=== PATIENT | male | born 1935 | race Caucasian/White ===

== ENCOUNTER 2018-06-17 08:41 | Inpatient (IN) | payer MEDICARE, BC ==
[2018-06-17 09:41] LABS: ABSOLUTE LYMPHOCYTES (AUTO) 0.6 10^3/uL (0.5-4.7); ABSOLUTE MONOCYTES (AUTO) 1.3 10^3/uL (0.1-1.4); ABSOLUTE NEUT (AUTO) 7.9 10^3/uL (1.7-8.2); BASOPHILS % (AUTO) 0.4 % (0-2); EOSINOPHILS % (AUTO) 0.4 % (0-6); HEMATOCRIT 31.2 % (37.9-51.0); HEMOGLOBIN 10.8 g/dL (13.5-17.0); LYMPHOCYTES % (AUTO) 6.1 % (13-45); MEAN CORPUSCULAR HEMOGLOBIN 27.5 pg (27.0-33.4); MEAN CORPUSCULAR HGB CONC 34.5 g/dL (32.0-36.0); MEAN CORPUSCULAR VOLUME 80 fl (80-97); MONOCYTES % (AUTO) 13.4 % (3-13); PLATELET COUNT 109 10^3/uL (150-450); RED BLOOD COUNT 3.91 10^6/uL (4.35-5.55); RED CELL DISTRIBUTION WIDTH 13.9 % (11.5-14.0); SEGMENTED NEUTROPHILS % (AUTO) 79.7 % (42-78); TOTAL CELLS COUNTED % (AUTO) 100 %; WHITE BLOOD COUNT 9.9 10^3/uL (4.0-10.5)
[2018-06-17 10:00] LABS: ALANINE AMINOTRANSFERASE 23 U/L (21-72); ALBUMIN 3.6 g/dL (3.5-5.0); ALKALINE PHOSPHATASE 70 U/L (38-126); ANION GAP 8 (5-19); ASPARTATE AMINO TRANSFERASE 14 U/L (17-59); BILIRUBIN,DIRECT 0.1 mg/dL (0.0-0.4); BILIRUBIN,TOTAL 1.5 mg/dL (0.2-1.3); BLOOD UREA NITROGEN 11 mg/dL (7-20); CALCIUM 8.7 mg/dL (8.4-10.2); CARBON DIOXIDE 32 mmol/L (22-30); CHLORIDE 84 mmol/L (98-107); CREATINE KINASE 37 U/L (55-170); GLUCOSE 156 mg/dL (75-110); POTASSIUM 5.1 mmol/L (3.6-5.0); SODIUM 123.9 mmol/L (137-145); TOTAL PROTEIN 6.3 g/dL (6.3-8.2)
--- NOTE | 2018-06-17 10:00 | RADIOLOGY REPORT (SQ) ---
EXAM DESCRIPTION: CHEST 2 VIEWS COMPLETED DATE/TIME: 06/17/2018 9:44 am REASON FOR STUDY: sob COMPARISON: 03/17/2015. EXAM PARAMETERS: NUMBER OF VIEWS: two views TECHNIQUE: Digital Frontal and Lateral radiographic views of the chest acquired. RADIATION DOSE: NA LIMITATIONS: none FINDINGS: LUNGS AND PLEURA: No opacities, masses or pneumothorax. No pleural effusion. MEDIASTINUM AND HILAR STRUCTURES: No masses or contour abnormalities. HEART AND VASCULAR STRUCTURES: Stable mild cardiomegaly. No evidence for failure. BONES: No acute findings. Old fracture of the left clavicle. HARDWARE: Pacemaker. OTHER: No other significant finding. IMPRESSION: STABLE APPEARANCE OF THE CHEST. MILD CARDIOMEGALY. TECHNICAL DOCUMENTATION: JOB ID: [id number] [employer]- All Rights Reserved Reading location - IP/workstation name: [email or web address]
[2018-06-17 10:11] LABS: CREATINE KINASE MB 1.65 ng/mL (<4.55); NT PRO BNP 4300 pg/mL (<450)
[2018-06-17 10:13] LABS: TROPONIN I < 0.012 ng/mL
[2018-06-17 10:14] LABS: VENOUS BLOOD BASE EXCESS 5.4 mmol/L; VENOUS BLOOD HCO3 31.7 mmol/L (20-32); VENOUS BLOOD PCO2 55.3 mmHg (35-63); VENOUS BLOOD PH 7.38 (7.30-7.42)
--- NOTE | 2018-06-17 10:20 | ER Document Report ---
ED General - General Chief Complaint: Shortness Of Breath Stated Complaint: SHORTNESS OF BREATH Time Seen by Provider: 06/17/18 09:15 TRAVEL OUTSIDE OF THE [place] IN LAST 30 DAYS: No - HPI Patient complains to provider of: Shortness of breath Notes: The patient patient coming in for evaluation of shortness of breath. Patient states ongoing for greater than a week. Patient states having difficulty sleeping at night unable to lie flat in bed patient does endorse approximately a 10-15 pound weight gain. Patient does endorse a history of CHF COPD diabetes A. fib. Patient does have an AICD placed. Patient states compliance with his medication including his Lasix at bedside states that they have been doubling up every other day to try to get some fluid off however this is been unsuccessful saw her mailing clerk today Dr. Montalvo who referred the patient to the ER for further evaluation. Patient otherwise denies any chest pain denies any fevers chills productive cough. Patient is currently on 2 L nasal cannula oxygen states he does not wear oxygen at home upon removing the oxygen patient's SPO2 does go down to approximately 91-92. - Related Data Allergies/Adverse Reactions: No Known Allergies Allergy (Verified 06/17/18 08:42) Past Medical History - Social History Smoking Status: Former Smoker Chew tobacco use (# tins/day): No Frequency of alcohol use: None Drug Abuse: None Family History: Reviewed & Not Pertinent Patient has suicidal ideation: No Patient has homicidal ideation: No - Past Medical History Cardiac Medical History: Reports: Hx Hypercholesterolemia, Hx Hypertension Endocrine Medical History: Reports: Hx Diabetes Mellitus Type 2 Renal/ Medical History: Reports: Hx Benign Prostatic Hyperplasia, Hx Renal Insufficiency. Denies: Hx Peritoneal Dialysis GI Medical History: Reports: Hx Diverticulitis Past Surgical History: Reports: Hx Cholecystectomy, Hx Herniorrhaphy, Hx Orthopedic Surgery - Immunizations Immunizations up to date: Yes Hx Diphtheria, Pertussis, Tetanus Vaccination: Yes Hx Pneumococcal Vaccination: 06/10/12 Review of Systems - Review of Systems Constitutional: No symptoms reported EENT: No symptoms reported Cardiovascular: No symptoms reported Respiratory: Short of breath Gastrointestinal: No symptoms reported Genitourinary: No symptoms reported Male Genitourinary: No symptoms reported Musculoskeletal: No symptoms reported Skin: No symptoms reported Hematologic/Lymphatic: No symptoms reported Neurological/Psychological: No symptoms reported -: Yes All other systems reviewed and negative Physical Exam - Vital signs Vitals: Temp Pulse Resp BP Pulse Ox 97.6 F 94 20 106/64 95 06/17/18 08:47 06/17/18 08:47 06/17/18 08:47 06/17/18 08:47 06/17/18 08:47 Interpretation: Normal - General General appearance: Appears well, Alert - HEENT Head: Normocephalic, Atraumatic Eyes: Normal Pupils: PERRL Notes: No JVD hepatojugular reflux is positive - Respiratory Respiratory status: No respiratory distress Chest status: Nontender Breath sounds: Rales Chest palpation: Normal - Cardiovascular Rhythm: Regular Heart sounds: Normal auscultation Murmur: No - Abdominal Inspection: Normal Distension: No distension Bowel sounds: Normal Tenderness: Nontender Organomegaly: No organomegaly - Back Back: Normal, Nontender - Extremities General upper extremity: Normal inspection, Nontender, Normal color, Normal ROM, Normal temperature General lower extremity: Normal inspection, Nontender, Edema - 2+, Normal color, Normal ROM, Normal temperature - Neurological Neuro grossly intact: Yes Cognition: Normal Orientation: AAOx4 Madelyn Coma Scale Eye Opening: Spontaneous [place] Coma Scale Verbal: Oriented Madelyn Coma Scale Motor: Obeys Commands Madelyn Coma Scale Total: 15 Speech: Normal Motor strength normal: LUE, RUE, LLE, RLE Sensory: Normal - Psychological Associated symptoms: Normal affect, Normal mood - Skin Skin Temperature: Warm Skin Moisture: Dry Skin Color: Normal Course - Re-evaluation Re-evalutation: 06/17/18 11:09 Patient coming in for evaluation of shortness of breath physical examination is consistent with a acute CHF exacerbation with hepatojugular reflux rales and edema to 3+ in the lower extremities. Patient's weight has increased by about 15 kg from his previous time here in the ER. Chest x-ray does show some cephalization although is read as normal by the radiologist. Laboratory studies do show signs of hyponatremia. Blood pressure has been marginal soft however the patient has had no symptoms no dizziness no weakness while here initial blood pressure 102 blood pressures while in the past has ranged between 90-97 systolic. At this time patient looks to need hydration and diuresis. Albumin is otherwise normal. Some of the patient's hypotension may be due to the patient taking his home medications just prior to arrival along with doubling up with his Lasix. Discussed with hospitalist will continue to monitor patient no diuresis or fluid will be given at this time. More likely will have to let the patient's medications were off to increase his blood pressure therefore allowing us to diurese him. - Vital Signs Vital signs: Temp Pulse Resp BP Pulse Ox 97.6 F 94 15 97/58 L 97 06/17/18 08:47 06/17/18 08:47 06/17/18 10:06 06/17/18 10:06 06/17/18 10:06 - Laboratory Result Diagrams: 06/17/18 09:25 06/17/18 09:25 Laboratory results interpreted by me: 06/17/18 06/17/18 06/17/18 09:25 09:25 09:25 RBC 3.91 L Hgb 10.8 L Hct 31.2 L Plt Count 109 L Seg Neutrophils % 79.7 H Lymphocytes % 6.1 L Monocytes % 13.4 H Sodium 123.9 L Potassium 5.1 H Chloride 84 L Carbon Dioxide 32 H Glucose 156 H Total Bilirubin 1.5 H AST 14 L Creatine Kinase 37 L NT-Pro-B Natriuret Pep 4300 H Discharge - Discharge Clinical Impression: Diabetes, Hyponatremia Acute CHF Qualifiers: Heart failure type: unspecified Qualified Code(s): I50.9 - Heart failure, unspecified Hypertension Qualifiers: Hypertension type: unspecified Qualified Code(s): I10 - Essential (primary) hypertension Hypotension Qualifiers: Hypotension type: unspecified hypotension type Qualified Code(s): I95.9 - Hypotension, unspecified Condition: Stable Disposition: ADMITTED INPATIENT Admitting Provider: Hospitalist - Sis Unit Admitted: [facility] Referrals: JEREMIAS ORR MD [Primary Care Provider] - Follow up as needed
[2018-06-17] MEDS ORDERED: ACETAMINOPHEN 325 MG TABLET PO PRN (12:13)
[2018-06-17] MEDS ORDERED: PROMETHAZINE HCL 25 MG TABLET PO PRN (12:13)
[2018-06-17] MEDS ORDERED: NITROGLYCERIN 0.4 MG/TAB 25 TAB/BOTTLE SL PRN (12:13)
[2018-06-17] MEDS ORDERED: DEXTROSE 50%-WATER 25 GM/50 ML DISP.SYRIN IV PRN ×2 (12:44)
[2018-06-17] MEDS ORDERED: DEXTROSE 40% GEL 15 GM TUBE PO PRN ×2 (12:44)
[2018-06-17] MEDS ORDERED: GLUCAGON,HUMAN RECOMB 1 MG INJ IM PRN (12:44)
--- NOTE | 2018-06-17 13:02 | EKG REPORT ---
SEVERITY:- ABNORMAL ECG - SINUS RHYTHM RIGHT BUNDLE BRANCH BLOCK FIRST DEGREE AVB : Confirmed by: Joel Brown MD 17-Jun-2018 13:01:46
--- NOTE | 2018-06-17 13:34 | PDOC H&P ---
History of Present Illness Admission Date/PCP: 06/17/18 11:30 MD Salo PARR MD nonfarm animal caretaker Patient complains of: Swelling and increasing shortness of breath History of Present Illness: LIAM LE is a 83 year old male who saw his nonfarm animal caretaker Dr. Montalvo this morning. He was referred to the emergency department. History was from the patient and his . The patient denies history of myocardial infarction. He does have chronic grade 2 diastolic and severely compromised systolic congestive failure. Last echocardiogram in 2017 suggests ejection fraction less than 25%. Markedly dilated ventricle with mild concentric LVH and severe hypokinesis globally. Left atrium is enlarged as well. His reports that he has been having increased shortness of breath over at least the last week or 2. They have noticed increased swelling and weight gain over the last 3-4 days. This is also impaired his gait. He has been feeling woozy and more unsteady on his feet. He needs to sit up. He now constantly has a fan blowing air on him. He denies chest pain with all of this. Despite Dr. Montalvo encouraging them to call carin turner early with regard to increasing shortness of breath and swelling they left a message at the office yesterday. They went to this morning and he felt that he was beyond outpatient therapy and referred him to the emergency department. He does have history of AICD placement at least one year ago and more likely 2-3 years. On the last echocardiogram there is no evidence of thrombus in the dilated ventricle but because of his depressed ejection fraction he is now on chronic anticoagulation. He reports that his defibrillator has not fired at all. In addition the patient has diabetes mellitus with neuropathy and tends to struggle with constipation. His initial troponin in the emergency department was negative. He was found to have a sodium of only 123 and a potassium of 5.1. His brain natruretic peptide was 4300. Past Medical History Cardiac Medical History: Reports: Congestive Heart Failure, Hyperlipidema, Hypertension, Heart Murmur Pulmonary Medical History: Reports: Pneumonia EENT Medical History: Reports: Cataracts, Eyes - Macular degeneration, Nose - Rhinophyma Neurological Medical History: Denies: Hemorrhagic CVA, Ischemic CVA Endocrine Medical History: Reports: Diabetes Mellitus Type 2, Obesity Renal/ Medical History: Denies: Chronic Kidney Disease, End Stage Renal Disease Malignancy Medical History: Reports: None GI Medical History: Reports: Diverticulitis, Gastroesophageal Reflux Disease Musculoskeltal Medical History: Reports: Arthritis Skin Medical History: Reports: None Psychiatric Medical History: Denies: Alcohol Dependency, Bipolar Disorder, Depression, General Anxiety Disorder, Tobacco Dependency Traumatic Medical History: Reports: Other - Fell from a roof. Fractured several ribs in his clavicle. Hematology: Reports: Anemia Infectious Medical History: Reports: None Past Surgical History Past Surgical History: Reports: Cholecystectomy, Herniorrhaphy, Orthopedic Surgery Social History Information Source: Patient, Relative Lives with: Spouse/Significant other Smoking Status: Former Smoker Frequency of Alcohol Use: None Hx Recreational Drug Use: No Drugs: None Hx Prescription Drug Abuse: No - Advance Directive Surrogate healthcare decision maker:: He does not have an advance care proxy. He reports that his , who is present at the bedside, would be the decision maker. We did review the fact that he already has an implanted defibrillator. He states that he would in fact like us to try and resuscitate him and intubate him and if things are not going well his could then decide to withdraw aggressive treatment. Family History Family History: CAD, DM, Malignancy Parental Family History Reviewed: Yes Children Family History Reviewed: Yes Sibling(s) Family History Reviewed.: Yes Medication/Allergy Home Medications: Apixaban [Eliquis 5 mg Tablet] 5 mg PO Q12 06/17/18 Aspirin [Adult Low Dose Aspirin EC] 81 mg PO QAM 06/17/18 Carvedilol [Coreg 3.125 mg Tablet] 6.25 mg PO Q12 06/17/18 Cyanocobalamin (Vitamin B-12) [Vitamin B12] 5,000 mcg PO DAILY 06/17/18 Docusate Sodium [Stool Softener] 100 mg PO DAILY 06/17/18 Finasteride [Proscar 5 mg Tablet] 5 mg PO QPM 06/17/18 Furosemide [Lasix 40 mg Tablet] 40 mg PO DAILY 06/17/18 Glipizide [Glucotrol 5 mg Tablet] 5 mg PO BID 06/17/18 Insulin Glargine,Hum.rec.anlog [Basaglar Kwikpen U-100] 14 units SQ QHS 06/17/18 Lansoprazole [Prevacid] 30 mg PO QAM 06/17/18 Magnesium Oxide [Mag-Ox 400 mg Tablet] 400 mg PO DAILY 06/17/18 Metformin HCl [Glucophage] 1,000 mg PO BID 06/17/18 Pregabalin [Lyrica 75 mg Capsule] 75 mg PO Q12 06/17/18 Sacubitril/Valsartan [Entresto 97 mg/103 mg Tablet] 1 tab PO BID 06/17/18 Sitagliptin Phosphate [Januvia] 100 mg PO DAILY 06/17/18 Tamsulosin HCl [Flomax 0.4 mg Cap.sr] 0.4 mg PO QPM 06/17/18 Tramadol HCl [Ultram 50 mg Tablet] 50 mg PO BID 06/17/18 Allergies/Adverse Reactions: No Known Allergies Allergy (Verified 06/17/18 08:42) Review of Systems Constitutional: PRESENT: fatigue, weight gain Eyes: ABSENT: visual disturbances Ears: ABSENT: hearing changes Nose, Mouth, and Throat: ABSENT: mouth pain, sore throat Cardiovascular: PRESENT: dyspnea on exertion, edema, orthropnea. ABSENT: chest pain, palpitations Respiratory: PRESENT: dyspnea. ABSENT: cough, hemoptysis, sputum Gastrointestinal: PRESENT: constipation, other - Decreased appetite. ABSENT: diarrhea, nausea, vomiting Genitourinary: ABSENT: dysuria, hematuria Musculoskeletal: PRESENT: other - Knee pain Integumentary: ABSENT: lesions, pruritus Neurological: PRESENT: abnormal gait, numbness Psychiatric: ABSENT: anxiety, depression, hallucinations Endocrine: PRESENT: heat intolerance. ABSENT: flushing Hematologic/Lymphatic: ABSENT: easy bruising, lymphadenopathy Allergic/Immunologic: ABSENT: seasonal rhinorrhea Physical Exam Vital Signs: Temp Pulse Resp BP Pulse Ox 97.6 F 94 16 102/70 98 06/17/18 08:47 06/17/18 08:47 06/17/18 12:00 06/17/18 11:22 06/17/18 12:00 Intake & Output 06/16/18 06/17/18 06/18/18 06:59 06:59 06:59 Weight 114.3 kg General appearance: PRESENT: mild distress, morbidly obese - BMI 34.2 Head exam: PRESENT: atraumatic, normocephalic Eye exam: PRESENT: conjunctiva pale, EOMI. ABSENT: conjunctival injection, scleral icterus Ear exam: PRESENT: normal external ear exam Mouth exam: PRESENT: moist, neck supple, tongue midline Teeth exam: PRESENT: poor dentation Neck exam: ABSENT: carotid bruit, lymphadenopathy, thyromegaly Respiratory exam: PRESENT: rales - Final rales at both bases., symmetrical. ABSENT: rhonchi, stridor, unlabored - Slightly labored, wheezes Cardiovascular exam: PRESENT: RRR, +S1, +S2, systolic murmur Pulses: PRESENT: normal radial pulses, +1 pedal pulses bilateral Vascular exam: ABSENT: pallor GI/Abdominal exam: PRESENT: normal bowel sounds, soft. ABSENT: ascites, distended - Protuberant abdomen, tenderness Rectal exam: PRESENT: deferred Gentrourinary exam: ABSENT: indwelling catheter Extremities exam: PRESENT: +2 edema - Proximal to both knees. Hands are puffy as well.. ABSENT: calf tenderness Neurological exam: PRESENT: alert, awake, oriented to person, oriented to place, oriented to time, oriented to situation, CN II-XII grossly intact Psychiatric exam: PRESENT: flat affect. ABSENT: agitated, anxious, depressed Focused psych exam: ABSENT: restlessness Skin exam: PRESENT: dry, warm. ABSENT: erythema, mottled, pallor Results Laboratory Results: 06/17/18 09:25 06/17/18 09:25 06/17/18 06/17/18 06/17/18 09:25 09:25 10:05 WBC 9.9 RBC 3.91 L Hgb 10.8 L Hct 31.2 L MCV 80 MCH 27.5 MCHC 34.5 RDW 13.9 Plt Count 109 L Seg Neutrophils % 79.7 H Lymphocytes % 6.1 L Monocytes % 13.4 H Eosinophils % 0.4 Basophils % 0.4 Absolute Neutrophils 7.9 Absolute Lymphocytes 0.6 Absolute Monocytes 1.3 Absolute Eosinophils 0.0 Absolute Basophils 0.0 VBG pH 7.38 VBG pCO2 55.3 VBG HCO3 31.7 VBG Base Excess 5.4 Sodium 123.9 L Potassium 5.1 H Chloride 84 L Carbon Dioxide 32 H Anion Gap 8 BUN 11 Creatinine 0.56 Est GFR ( Amer) > 60 Est GFR (Non-Af Amer) > 60 Glucose 156 H Calcium 8.7 Total Bilirubin 1.5 H AST 14 L ALT 23 Alkaline Phosphatase 70 Total Protein 6.3 Albumin 3.6 06/17/18 06/17/18 09:25 09:25 Creatine Kinase 37 L CK-MB (CK-2) 1.65 Troponin I < 0.012 NT-Pro-B Natriuret Pep 4300 H EKG Comments: Right bundle branch block with first-degree AV block Impressions: Chest X-Ray 06/17/18 09:23 IMPRESSION: STABLE APPEARANCE OF THE CHEST. MILD CARDIOMEGALY. Assessment & Plan - Diagnosis (1) Acute respiratory failure with hypoxia Is this a current diagnosis for this admission?: Yes Plan: The patient's oxygen saturation was less than 90% on room air. He required 2 L nasal cannula to get above 90%. He has had pneumonia in the past but no evidence of persistent chronic obstructive pulmonary disease. This failure is r elated to his acute on chronic congestive heart failure. We will provide supplemental oxygen and wean as tolerated. See plan for congestive heart failure below. (2) Acute on chronic systolic and diastolic heart failure, NYHA class 4 Is this a current diagnosis for this admission?: Yes Plan: I reviewed echocardiograms from Dr. Montalvo's office. Study dates were September 07, 2016 and November 09, 2016. Consistently depressed ejection fraction less than 25%. Global left ventricle hypokinesis. Dilated left atrium (severely) with mildly dilated right atrium. The right ventricle is only moderately dilated. There is moderate mitral regurgitation as well as mild tricuspid regurgitation. Mild aortic root dilatation and mild to moderate pulmonary valve regurgitation. There is only trace aortic regurgitation. There is mild left ventricular concentric hypertrophy. I called the patient's nonfarm animal caretaker, Dr. Montalvo, and our plan will be to use intravenous furosemide at 40 mg twice daily as well as 2.5 mg of Zaroxolyn prior to the furosemide dosing. In order not to decrease his blood pressure too much I will reduce his Entresto dose to the smallest dose and increase it back to the maximum dose that he was on as his pressure tolerates. We will continue his carvedilol at the newly increased dose of 6.25 mg twice daily and he will remain on his Eliquis for his dilated cardiomyopathy with depressed ejection fraction. We will continue his 81 mg aspirin daily as well. He is not on statin therapy and I will discuss this with Dr. Montalvo. While he is here we will check serial troponin levels and repeat an echocardio gram since it has been approximately 18 months since his last study. We will need to monitor his electrolytes and renal function during this diuresis. I will shoot for at least a negative fluid balance of 1 L daily. We will try and elevate his legs when possible. (3) Dilated cardiomyopathy Plan: See the plan outlined above. The patient already has an AICD implanted. (4) Hyponatremia Is this a current diagnosis for this admission?: Yes Plan: The patient has significant hyponatremia. I will place him on a 1.2 L of fluid restriction. This may allow us to be less aggressive with his diuretic therapy. Continue to monitor his serum sodium level. (5) Diabetes mellitus type 2, insulin dependent Is this a current diagnosis for this admission?: Yes Plan: The patient is on Januvia, metformin, glipizide and Lantus. For the time being I will continue the metformin, glipizide and Lantus and I will add a sliding scale as well as keep the patient on a controlled carbohydrate/cardiac diet. (6) Diabetes mellitus type 2 with neurological manifestations Is this a current diagnosis for this admission?: Yes Plan: We will continue patient's Lyrica and as needed tramadol for his diabetic neuropathy. (7) Thrombocytopenia Is this a current diagnosis for this admission?: Yes Plan: Platelet counts are low on admission. We will continue to monitor. If they continue to decrease our review his medications for potential etiologies. I will adjust his medications as clinically indicated. (8) Obesity (BMI 30.0-34.9) Is this a current diagnosis for this admission?: Yes Plan: The patient has at least 10-15 pounds of water weight gain. We will continue to encourage strict cardiac/controlled carbohydrate diet. (9) Anemia Qualifiers: Anemia type: unspecified type Qualified Code(s): D64.9 - Anemia, unspecified Is this a current diagnosis for this admission?: Yes Plan: The patient is on a vitamin B12 supplement but no iron. I will hold his B12 and check an anemia panel as he may need iron as well. His MCV is only 80. - Time Time Spent: Greater than 70 Minutes Medications reviewed and adjusted accordingly: Yes Anticipated discharge: Home - Inpatient Certification Based on my medical assessment, after consideration of the patient's comorbidities, presenting symptoms, or acuity I expect that the services needed warrant INPATIENT care.: Yes I certify that my determination is in accordance with my understanding of Medicare's requirements for reasonable and necessary INPATIENT services [42 CFR 412.3e].: Yes Medical Necessity: Failure to Improve With Outpatient Therapy, Significant Comorbidiites Make Outpatient Treatment Too Risky, Need Close Monitoring Due to Risk of Patient Decompensation, Need For Continuous Telemetry Monitoring, Risk of Complication if Not Cared For in Hospital Post Hospital Care: D/C Nanny/Household Manager Documentation - Plan Summary Plan Summary: As noted above I did review the case with the patient's nonfarm animal caretaker. He was good enough to send me the patient's last 2 echocardiograms from the office. We discussed the treatment plan and the nonfarm animal caretaker is in agreement. I will try to keep him informed of the patient's progress.
[2018-06-17] MEDS: TRAMADOL HCL 50 MG TABLET PO PRN ×2 (15:56→22:32)
[2018-06-17] MEDS: GLIPIZIDE 5 MG TABLET PO SCH (15:57)
[2018-06-17] MEDS: METFORMIN HCL 500 MG TABLET PO SCH (15:57)
[2018-06-17 16:39] LABS: CREATINE KINASE MB 1.56 ng/mL (<4.55); TROPONIN I < 0.012 ng/mL
[2018-06-17] MEDS: APIXABAN 5 MG TABLET PO SCH (17:26)
[2018-06-17] MEDS: METOLAZONE 2.5 MG TABLET PO SCH (17:26)
[2018-06-17] MEDS: TAMSULOSIN HCL 0.4 MG CAP.SR.24H PO SCH (17:26)
[2018-06-17] MEDS: DOCUSATE SODIUM 100 MG CAPSULE PO SCH (17:26)
[2018-06-17] MEDS: SACUBITRIL/VALSARTAN 24 MG/26 MG TABLET PO SCH (22:00)
[2018-06-17] MEDS: CARVEDILOL 6.25 MG TABLET PO SCH (22:00)
[2018-06-17] MEDS: FUROSEMIDE INJ/PF 40 MG/4 ML SDV IV SCH (22:01)
[2018-06-17] MEDS: INSULIN GLARGINE,HUM.REC.ANLOG 300 UNIT/3 ML INSULN.PEN SUBCUT SCH (22:02)
[2018-06-17] MEDS: PREGABALIN 75 MG CAPSULE PO SCH (22:02)
[2018-06-18] MEDS: LANSOPRAZOLE 30 MG TAB.RAP.DR PO SCH (05:13)
[2018-06-18 06:56] LABS: ABSOLUTE EOSINOPHILS # (AUTO) 0.1 10^3/uL (0.0-0.6); ABSOLUTE MONOCYTES (AUTO) 1.1 10^3/uL (0.1-1.4); ABSOLUTE NEUT (AUTO) 4.4 10^3/uL (1.7-8.2); ABSOLUTE RETICS # 0.075 10^6/uL (0.028-0.122); BASOPHILS % (AUTO) 0.4 % (0-2); HEMATOCRIT 29.1 % (37.9-51.0); HEMOGLOBIN 9.9 g/dL (13.5-17.0); LYMPHOCYTES % (AUTO) 15.1 % (13-45); MEAN CORPUSCULAR HEMOGLOBIN 27.3 pg (27.0-33.4); MEAN CORPUSCULAR HGB CONC 33.9 g/dL (32.0-36.0); MEAN CORPUSCULAR VOLUME 81 fl (80-97); MONOCYTES % (AUTO) 17.1 % (3-13); RED BLOOD COUNT 3.61 10^6/uL (4.35-5.55); RED CELL DISTRIBUTION WIDTH 13.8 % (11.5-14.0); RETICULOCYTE COUNT (AUTO) 2.07 % (0.66-2.85); SEGMENTED NEUTROPHILS % (AUTO) 66.4 % (42-78); TOTAL CELLS COUNTED % (AUTO) 100 %; WHITE BLOOD COUNT 6.6 10^3/uL (4.0-10.5)
[2018-06-18 07:05] LABS: ANION GAP 8 (5-19); BLOOD UREA NITROGEN 12 mg/dL (7-20); CALCIUM 8.5 mg/dL (8.4-10.2); CARBON DIOXIDE 33 mmol/L (22-30); CHLORIDE 83 mmol/L (98-107); CHOLESTEROL 117.09 mg/dL (0-200); GLUCOSE 79 mg/dL (75-110); IRON(TIBC) 51.8 ug/dL (49-181); POTASSIUM 4.3 mmol/L (3.6-5.0); SODIUM 123.6 mmol/L (137-145); TRIGLYCERIDES 77 mg/dL (<150)
[2018-06-18 07:16] LABS: DIRECT LDL 84 mg/dL (<100)
[2018-06-18 07:17] LABS: PLATELET COUNT 99 10^3/uL (150-450)
[2018-06-18] MEDS: METFORMIN HCL 500 MG TABLET PO SCH ×2 (07:19→16:59)
[2018-06-18] MEDS: GLIPIZIDE 5 MG TABLET PO SCH ×2 (07:20→16:59)
--- NOTE | 2018-06-18 08:01 | EKG REPORT ---
SEVERITY:- ABNORMAL ECG - ATRIAL FIBRILLATION RIGHT BUNDLE BRANCH BLOCK : Confirmed by: Joel Brown MD 18-Jun-2018 08:00:44
[2018-06-18] MEDS: DOCUSATE SODIUM 100 MG CAPSULE PO SCH ×2 (09:53→17:22)
[2018-06-18] MEDS: MAGNESIUM OXIDE 400 MG TABLET PO SCH (09:53)
[2018-06-18] MEDS: CARVEDILOL 6.25 MG TABLET PO SCH ×2 (09:54→21:26)
[2018-06-18] MEDS: SACUBITRIL/VALSARTAN 24 MG/26 MG TABLET PO SCH (09:54)
[2018-06-18] MEDS: APIXABAN 5 MG TABLET PO SCH ×2 (09:54→17:22)
[2018-06-18] MEDS: ASPIRIN 81 MG TABLET, ENT COATED PO SCH (09:55)
[2018-06-18] MEDS: METOLAZONE 2.5 MG TABLET PO SCH ×2 (09:55→17:22)
[2018-06-18] MEDS: FUROSEMIDE INJ/PF 40 MG/4 ML SDV IV SCH (09:55)
[2018-06-18] MEDS: PREGABALIN 75 MG CAPSULE PO SCH ×2 (09:55→21:26)
[2018-06-18] MEDS ORDERED: NORMAL SALINE 250 ML with FUROSEMIDE 250 MG IV PRN ×2 (17:02)
--- NOTE | 2018-06-18 17:17 | PDOC PROGRESS REPORT ---
Subjective Progress Note for:: 06/18/18 Subjective:: The patient is only feeling slightly better. His furosemide was held last night due to marginal blood pressure. Nursing reports brief episodes of tachycardia today. The patient also reports that he does have some difficulty swallowing improved. Some food seems to stick in his throat. He did tell me that this is not new. Reason For Visit: HEART FAILURE Physical Exam Vital Signs: Temp Pulse Resp BP Pulse Ox 97.9 F 102 H 14 102/60 97 06/18/18 15:41 06/18/18 15:41 06/18/18 11:28 06/18/18 15:41 06/18/18 15:41 Pulse Oximeter Continuous Start: 06/17/18 12:14 Freq: RTQ4 Status: Active Protocol: Document 06/18/18 12:50 [facility] [place] (Rec: 06/18/18 13:57 [facility] [place] [id number]) Pulse Oximetry Assessment Oxygen Saturation (92-100) 94 Oxygen Flow Rate (L/min) 2 Oxygen Delivery Method Nasal Cannula Equipment Usage Equipment in Use Continuous SpO2 Machine # n 4 Intake & Output 06/17/18 06/18/18 06/19/18 06:59 06:59 06:59 Intake Total 0 618 Output Total 50 275 Balance -50 343 Weight 117 kg General appearance: PRESENT: mild distress, obese Head exam: PRESENT: normocephalic Eye exam: PRESENT: conjunctiva pale Ear exam: PRESENT: normal external ear exam Mouth exam: PRESENT: moist, tongue midline Respiratory exam: PRESENT: rales - Bilateral, symmetrical. ABSENT: accessory muscle use, rhonchi, stridor, wheezes Cardiovascular exam: PRESENT: RRR, +S1, +S2 GI/Abdominal exam: PRESENT: distended - Protuberant abdomen, normal bowel sounds, soft. ABSENT: tenderness Extremities exam: PRESENT: other - 3+ edema to the knees Neurological exam: PRESENT: alert, awake, oriented to person, oriented to place, oriented to time, oriented to situation Psychiatric exam: PRESENT: flat affect. ABSENT: agitated, anxious Focused psych exam: ABSENT: restlessness Results Laboratory Results: 06/18/18 05:45 06/18/18 05:45 06/18/18 06/18/18 06/18/18 05:45 05:45 05:45 WBC 6.6 RBC 3.61 L Hgb 9.9 L Hct 29.1 L MCV 81 MCH 27.3 MCHC 33.9 RDW 13.8 Plt Count 99 L Seg Neutrophils % 66.4 Lymphocytes % 15.1 Monocytes % 17.1 H Eosinophils % 1.0 Basophils % 0.4 Absolute Neutrophils 4.4 Absolute Lymphocytes 1.0 Absolute Monocytes 1.1 Absolute Eosinophils 0.1 Absolute Basophils 0.0 Retic Count (auto) 2.07 Absolute Retic 0.075 Sodium 123.6 L Potassium 4.3 Chloride 83 L Carbon Dioxide 33 H Anion Gap 8 BUN 12 Creatinine 0.57 Est GFR ( Amer) > 60 Est GFR (Non-Af Amer) > 60 Glucose 79 Calcium 8.5 Magnesium 1.8 Iron 51.8 TIBC 241 L % Saturation 21 Ferritin 39.70 Triglycerides 77 Cholesterol 117.09 LDL Cholesterol Direct 84 VLDL Cholesterol 15.0 HDL Cholesterol 26 L Vitamin B12 > 1000.0 H Folate 12.50 TSH 4.99 H 06/17/18 06/17/18 06/17/18 09:25 09:25 15:48 Creatine Kinase 37 L CK-MB (CK-2) 1.65 1.56 Troponin I < 0.012 < 0.012 NT-Pro-B Natriuret Pep 4300 H 06/17/18 06/17/18 06/17/18 15:48 22:30 22:30 Creatine Kinase 36 L 42 L CK-MB (CK-2) 1.81 Troponin I NT-Pro-B Natriuret Pep Impressions: Chest X-Ray 06/17/18 09:23 IMPRESSION: STABLE APPEARANCE OF THE CHEST. MILD CARDIOMEGALY. Assessment & Plan - Diagnosis (1) Acute respiratory failure with hypoxia Is this a current diagnosis for this admission?: Yes Plan: Continue supplemental oxygen to keep saturation greater than 90%. (2) Acute on chronic systolic and diastolic heart failure, NYHA class 4 Is this a current diagnosis for this admission?: Yes Plan: I spoke with the patient's club director again today. We will try a furosemide continuous infusion since his blood pressure may tolerate this better. I will hold the Entresto completely in an effort to maintain reasonable blood pressure so that he may tolerate the Lasix. He is also on a fluid restriction for his hyponatremia and this will help to create a negative fluid balance hopefully. (3) Dilated cardiomyopathy Is this a current diagnosis for this admission?: Yes Plan: Echocardiogram is pending. His ejection fraction is likely decreased from November 2016 when it was listed as less than 25%. We may need to consider transfer to [facility] for more intense treatment of his failure. (4) Hyponatremia Is this a current diagnosis for this admission?: Yes Plan: Continue fluid restriction at this time. (5) Diabetes mellitus type 2, insulin dependent Is this a current diagnosis for this admission?: Yes Plan: Good glucose control. We may need to discontinue the glipizide if his sugars get too low. (6) Diabetes mellitus type 2 with neurological manifestations Is this a current diagnosis for this admission?: Yes Plan: Neuropathy is currently stable. No change in current medications. (7) Thrombocytopenia Is this a current diagnosis for this admission?: Yes Plan: Continue to monitor platelet count. He is already on Eliquis for anticoagulation for his dilated cardiomyopathy. No heparin therapy required. (8) Obesity (BMI 30.0-34.9) Is this a current diagnosis for this admission?: Yes Plan: Reassess when a large portion of the excess water weight is removed. He should be following a strict cardiac/controlled carbohydrate diet at home. (9) Anemia Qualifiers: Anemia type: unspecified type Qualified Code(s): D64.9 - Anemia, unspecified Is this a current diagnosis for this admission?: Yes Plan: Iron, folate and B12 levels showed no deficiencies. B12 level is actually slightly supratherapeutic. - Time Time Spent with patient: 15-24 minutes Medications reviewed and adjusted accordingly: Yes
[2018-06-18] MEDS: TAMSULOSIN HCL 0.4 MG CAP.SR.24H PO SCH (17:23)
[2018-06-18] MEDS: INSULIN GLARGINE,HUM.REC.ANLOG 300 UNIT/3 ML INSULN.PEN SUBCUT SCH (21:26)
[2018-06-18] MEDS: TRAMADOL HCL 50 MG TABLET PO PRN (21:26)
--- NOTE | 2018-06-18 22:18 | XCELERA REPORT ---
[address] [address] Transthoracic Echocardiogram Report Name: LIAM LE Age: 83 yrs Gender: Male : 1935 Patient Status: Inpatient Patient Location: [address] [place], [place] [id number] Study Date: 06/18/2018 06:50 PM Height: 74 in Weight: 257 lb BSA: 2.4 m2 Procedure: A two-dimensional transthoracic echocardiogram with color flow and Doppler was performed. Study Quality: Poor. The study was technically difficult with many images being suboptimal in quality. Poor endocardial visualisation. Reason For Study: Congestive heart failure with severe cardiomyopath History: Congestive heart failure with severe cardiomyopath. Ordering Physician: JEY PRASAD Performed By: Tamera Galindo Interpretation Summary Poor endocardial visualisation. The left ventricle is mildly to moderately dilated. There is mild concentric left ventricular hypertrophy. LV EF is 20% to 25% Left ventricular systolic function is severely reduced. There is severe global hypokinesis of the left ventricle. There is no thrombus. The right ventricle is not well visualized secondary to technical limitations The right ventricle is mildly dilated. The right ventricular systolic function is mild to moderately reduced. The right atrium is mildly dilated. The left atrium is moderately dilated. There is no evidence of mitral valve prolapse. There is no vegetation seen on the mitral valve. There is no mitral valve stenosis. There is a trace amount of mitral regurgitation There is no aortic valvular vegetation. There is no aortic valve stenosis There is no LVOT obstruction. There is aortic sclerosis without aortic stenosis. No aortic regurgitation is present. There is no tricuspid stenosis. There is a mild amount of tricuspid regurgitation There is moderate pulmonary hypertension by echo RVSP is 54 to 59 mm of Hg , with RA mean of 15 to 20. There is no pulmonic valvular stenosis. There is a trace amount of pulmonic regurgitation The inferior vena cava appeared dilated and decreased < 50% with respiration (RAP 15-20 mmHg) There is no pericardial effusion. MMode/2D Measurements & Calculations RVDd: 2.5 cm LVIDd: 7.2 cm FS: 13.1 % Ao root diam: 3.0 cm IVSd: 1.2 cm LVIDs: 6.2 cm EDV(Teich): 270.6 ml Ao root area: 7.3 cm2 LVPWd: 1.3 cm ESV(Teich): 197.2 ml LA dimension: 4.6 cm EF(Teich): 27.1 % Doppler Measurements & Calculations MV E max ronan: MV P1/2t max ronan: Ao V2 max: LV V1 max P.9 cm/sec 84.5 cm/sec 84.5 cm/sec 2.9 mmHg MV A max ronan: MV P1/2t: 67.0 msec Ao max PG: LV V1 max: 38.0 cm/sec MVA(P1/2t): 3.3 cm2 2.9 mmHg 84.9 cm/sec MV E/A: 2.2 MV dec slope: 369.1 cm/sec2 MV dec time: 0.15 sec PA V2 max: PI end-d ronan: TR max ronan: MV P1/2t-pr_phl: 77.4 cm/sec 139.8 cm/sec 312.2 cm/sec 67.0 msec PA max PG: TR max P.4 mmHg 39.0 mmHg Left Ventricle The left ventricle is mildly to moderately dilated. There is mild concentric left ventricular hypertrophy. LV EF is 20% to 25%. Left ventricular systolic function is severely reduced. There is severe global hypokinesis of the left ventricle. There is no thrombus. Right Ventricle The right ventricle is not well visualized secondary to technical limitations. The right ventricle is mildly dilated. The right ventricular systolic function is mild to moderately reduced. Atria The right atrium is mildly dilated. The left atrium is moderately dilated. Mitral Valve There is no evidence of mitral valve prolapse. There is no vegetation seen on the mitral valve. There is no mitral valve stenosis. There is a trace amount of mitral regurgitation. Aortic Valve There is no aortic valvular vegetation. There is no aortic valve stenosis. There is no LVOT obstruction. There is aortic sclerosis without aortic stenosis. No aortic regurgitation is present. Tricuspid Valve There is no tricuspid stenosis. There is a mild amount of tricuspid regurgitation. There is moderate pulmonary hypertension by echo. RVSP is 54 to 59 mm of Hg , with RA mean of 15 to 20. Pulmonic Valve There is no pulmonic valvular stenosis. There is a trace amount of pulmonic regurgitation. Great Vessels The aortic root is not well visualized. The inferior vena cava appeared dilated and decreased < 50% with respiration (RAP 15-20 mmHg). Effusions There is no pericardial effusion. : JEY PRASAD > Emmanuelle Martinez
[2018-06-19 05:46] LABS: HEMOGLOBIN 9.8 g/dL (13.5-17.0); MEAN CORPUSCULAR VOLUME 79 fl (80-97)
[2018-06-19 06:02] LABS: ALBUMIN 3.4 g/dL (3.5-5.0); BLOOD UREA NITROGEN 14 mg/dL (7-20); CALCIUM 8.5 mg/dL (8.4-10.2); CARBON DIOXIDE 32 mmol/L (22-30); CHLORIDE 78 mmol/L (98-107); GLUCOSE 68 mg/dL (75-110); POTASSIUM 4.3 mmol/L (3.6-5.0)
[2018-06-19 06:03] LABS: MEAN CORPUSCULAR HEMOGLOBIN 27.6 pg (27.0-33.4); MEAN CORPUSCULAR HGB CONC 34.9 g/dL (32.0-36.0); RED BLOOD COUNT 3.54 10^6/uL (4.35-5.55); RED CELL DISTRIBUTION WIDTH 13.5 % (11.5-14.0); WHITE BLOOD COUNT 7.3 10^3/uL (4.0-10.5)
[2018-06-19 06:04] LABS: ANION GAP 5 (5-19); PLATELET COUNT 89 10^3/uL (150-450)
[2018-06-19 06:26] LABS: SODIUM 114.6 mmol/L (137-145)
[2018-06-19] MEDS: LANSOPRAZOLE 30 MG TAB.RAP.DR PO SCH (06:58)
[2018-06-19] MEDS ORDERED: SODIUM BICARBONATE 650 MG TABLET PO ONE (07:15)
[2018-06-19] MEDS: METFORMIN HCL 500 MG TABLET PO SCH (07:44)
[2018-06-19] MEDS: GLIPIZIDE 5 MG TABLET PO SCH (07:44)
[2018-06-19] MEDS: TRAMADOL HCL 50 MG TABLET PO PRN (07:44)
[2018-06-19 09:31] LABS: BLOOD UREA NITROGEN 14 mg/dL (7-20); CALCIUM 8.5 mg/dL (8.4-10.2); CARBON DIOXIDE 31 mmol/L (22-30); CHLORIDE 75 mmol/L (98-107); GLUCOSE 115 mg/dL (75-110); POTASSIUM 4.6 mmol/L (3.6-5.0)
[2018-06-19 09:33] LABS: ANION GAP 10 (5-19)
[2018-06-19 09:37] LABS: SODIUM 115.9 mmol/L (137-145)
[2018-06-19] MEDS: MAGNESIUM OXIDE 400 MG TABLET PO SCH (11:03)
[2018-06-19] MEDS: DOCUSATE SODIUM 100 MG CAPSULE PO SCH ×2 (11:03→18:13)
[2018-06-19] MEDS: CARVEDILOL 6.25 MG TABLET PO SCH ×2 (11:04→21:45)
[2018-06-19] MEDS: ASPIRIN 81 MG TABLET, ENT COATED PO SCH (11:04)
[2018-06-19] MEDS: METOLAZONE 2.5 MG TABLET PO SCH ×2 (11:05→18:14)
[2018-06-19] MEDS: PREGABALIN 75 MG CAPSULE PO SCH ×2 (11:05→21:45)
[2018-06-19] MEDS ORDERED: DOBUTAMINE HCL/D5W 500 MG/250 ML RTUINJ IV PRN (11:11)
[2018-06-19] MEDS ORDERED: FUROSEMIDE INJ/PF 20 MG/2 ML SDV IV ONE (11:15)
--- NOTE | 2018-06-19 11:18 | PDOC CONSULTATION ---
Consultation Consult Date: 06/19/18 Consult reason:: Acute hyponatremia History of Present Illness Admission Date/PCP: 06/17/18 11:30 JEREMIAS ORR MD History of Present Illness: LIAM LE is a 83 year old male with a history of Diabetes mellitus, dilated cardiomyopathy with an LV ejection fraction of around 25%, Atrial fibrillation along with pulmonary hypertension. Follows with Dr. Montalvo, Cardiology was admitted with a history of progressive shortness of breath leading to orthopnea as well as progressive edema over the last few weeks.His and daughter is at the bedside and is able to corroborate the history that is being given by the patient. He denies any history of anterior chest pain but admits to the fact that he has had long-standing inter shoulder blade pains for the last few months. It apparently gets worse when he lays down. He has noticed edema all the way to his upper thighs. He also complains of some dysphagia that happens around the middle of his chest to some foods only for the last two days. No complaints of any GI bleeds. Vague intermittent upper abdominal pains. No history of any fever or chills. No history of any dysuria hematuria. Admits to poor appetite but what he eats is rather high in sodium. His bowels have been constipated. He denies being on any NSAIDs. He denies noncompliance. Evaluations were initially done by his outpatient loan operations specialist Dr. Montalvo who advised the patient for inpatient therapy as he was not responding to outpatient therapy. Evaluations in the ER revealed that the patient was in biventricular heart failure. He has been begun on IV Lasix infusion but has not responded appropriately. His sodium on admission was 123 and it dropped to 114 as of this morning.Did review his echocardiogram which shows severely dilated left ventricle with a depressed LV ejection fraction of 20-25%, moderately dilated left atrium and moderately severe pulmonary hypertension with an RVSP of 54-59 mmHg.Labs and medications were reviewed with the patient and his family at the bedside. Past Medical History Cardiac Medical History: Reports: Atrial Fibrillation, CHF-Systolic, Heart Murmur, Hyperlipidemia, Pulmonary Hypertension Pulmonary Medical History: Reports: Pneumonia EENT Medical History: Reports: Cataracts, Eyes - Macular degeneration, Nose - Rhinophyma Neurological Medical History: Denies: Hemorrhagic CVA, Ischemic CVA Endocrine Medical History: Reports: Diabetes Mellitus Type 2, Obesity Renal/ Medical History: Reports: Benign Prostatic Hyperplasia Denies: End Stage Renal Disease Malignancy Medical History: Reports: None GI Medical History: Reports: Diverticulitis, Gastroesophageal Reflux Disease Musculoskeltal Medical History: Reports: Arthritis Skin Medical History: Reports: None Psychiatric Medical History: Denies: Alcohol Dependency, Bipolar Disorder, Depression, General Anxiety Disorder, Tobacco Dependency Traumatic Medical History: Reports: Other - Fell from a roof. Fractured several ribs in his clavicle. Infectious Medical History: Reports: None Past Surgical History Past Surgical History: Reports: Cholecystectomy, Herniorrhaphy, Orthopedic Surgery Social History Lives with: Spouse/Significant other Smoking Status: Former Smoker Frequency of Alcohol Use: None Hx Recreational Drug Use: No Drugs: None Hx Prescription Drug Abuse: No Family History Parental Family History Reviewed: Yes - Denies any history of CKD Children Family History Reviewed: No Sibling(s) Family History Reviewed.: No Medication/Allergy Home Medications: Apixaban [Eliquis 5 mg Tablet] 5 mg PO Q12 06/17/18 Aspirin [Adult Low Dose Aspirin EC] 81 mg PO QAM 06/17/18 Carvedilol [Coreg 3.125 mg Tablet] 6.25 mg PO Q12 06/17/18 Cyanocobalamin (Vitamin B-12) [Vitamin B12] 5,000 mcg PO DAILY 06/17/18 Docusate Sodium [Stool Softener] 100 mg PO DAILY 06/17/18 Finasteride [Proscar 5 mg Tablet] 5 mg PO QPM 06/17/18 Furosemide [Lasix 40 mg Tablet] 40 mg PO DAILY 06/17/18 Glipizide [Glucotrol 5 mg Tablet] 5 mg PO BID 06/17/18 Insulin Glargine,Hum.rec.anlog [Basaglar Kwikpen U-100] 14 units SQ QHS 06/17/18 Lansoprazole [Prevacid] 30 mg PO QAM 06/17/18 Magnesium Oxide [Mag-Ox 400 mg Tablet] 400 mg PO QPM 06/17/18 Metformin HCl [Glucophage] 1,000 mg PO BID 06/17/18 Pregabalin [Lyrica 75 mg Capsule] 75 mg PO Q12 06/17/18 Sacubitril/Valsartan [Entresto 97 mg/103 mg Tablet] 1 tab PO BID 06/17/18 Sitagliptin Phosphate [Januvia] 100 mg PO DAILY 06/17/18 Tamsulosin HCl [Flomax 0.4 mg Cap.sr] 0.4 mg PO QPM 06/17/18 Tramadol HCl [Ultram 50 mg Tablet] 50 mg PO BID 06/17/18 Allergies/Adverse Reactions: No Known Allergies Allergy (Verified 06/17/18 08:42) Review of Systems Constitutional: PRESENT: anorexia, fatigue, weakness. ABSENT: chills, fever(s), headache(s), night sweats Nose, Mouth, and Throat: ABSENT: mouth pain, sore throat Cardiovascular: PRESENT: dyspnea on exertion, edema, orthropnea, palpitations. ABSENT: chest pain Gastrointestinal: PRESENT: constipation. ABSENT: abdominal pain, bloating, diarrhea, dysphagia, heartburn, nausea, vomiting Integumentary: ABSENT: lesions, pruritus, rash Neurological: ABSENT: focal weakness Psychiatric: ABSENT: anxiety, hallucinations Hematologic/Lymphatic: ABSENT: easy bruising, lymphadenopathy Physical Exam Vital Signs: Temp Pulse Resp BP Pulse Ox 98.2 F 99 14 123/64 96 06/19/18 07:52 06/19/18 07:52 06/19/18 07:52 06/19/18 07:52 06/19/18 09:15 Pulse Oximeter Continuous Start: 06/17/18 12:14 Freq: RTQ4 Status: Active Protocol: Document 06/19/18 09:15 JDR (Rec: 06/19/18 09:48 J [id number]) Pulse Oximetry Assessment Oxygen Saturation (92-100) 96 Oxygen Flow Rate (L/min) 1.5 Oxygen Delivery Method Nasal Cannula Equipment Usage Equipment in Use Continuous SpO2 Machine # 4 Intake & Output 06/18/18 06/19/18 06/20/18 06:59 06:59 06:59 Intake Total 0 1091 Output Total 50 825 Balance -50 266 Weight 117 kg 119.2 kg General appearance: PRESENT: no acute distress, disheveled, obese Eye exam: PRESENT: EOMI, PERRLA. ABSENT: nystagmus Mouth exam: PRESENT: moist, neck supple Neck exam: ABSENT: lymphadenopathy, meningismus, tenderness, thyromegaly, tracheal deviation Respiratory exam: PRESENT: clear to auscultation stanislaw, crackles - Bibasilar to his interscapular area., decreased breath sounds, symmetrical, other - JVD was elevated at 45 degrees to his middle of the neck. Cardiovascular exam: PRESENT: +S1, +S2 GI/Abdominal exam: PRESENT: normal bowel sounds, soft. ABSENT: organomegaly, tenderness Extremities exam: PRESENT: +2 edema. ABSENT: calf tenderness, joint swelling Neurological exam: PRESENT: altered - He is somewhat lethargic but responsive to all questions and answers them appropriately., awake, oriented to person, oriented to place Psychiatric exam: PRESENT: appropriate affect Skin exam: ABSENT: erythema, mottled, rash Results Laboratory Results: 06/19/18 05:26 06/19/18 08:52 06/19/18 06/19/18 06/19/18 05:26 05:26 05:26 WBC 7.3 RBC 3.54 L Hgb 9.8 L Hct 28.0 L MCV 79 L MCH 27.6 MCHC 34.9 RDW 13.5 Plt Count 89 L Sodium 114.6 L* Potassium 4.3 Chloride 78 L Carbon Dioxide 32 H Anion Gap 5 BUN 14 Creatinine 0.56 Est GFR ( Amer) > 60 Est GFR (Non-Af Amer) > 60 Glucose 68 L Serum Osmolality 243 L Calcium 8.5 Magnesium 1.7 Albumin 3.4 L 06/19/18 08:52 WBC RBC Hgb Hct MCV MCH MCHC RDW Plt Count Sodium 115.9 L* Potassium 4.6 Chloride 75 L Carbon Dioxide 31 H Anion Gap 10 BUN 14 Creatinine 0.56 Est GFR ( Amer) > 60 Est GFR (Non-Af Amer) > 60 Glucose 115 H Serum Osmolality Calcium 8.5 Magnesium Albumin 06/17/18 06/17/18 06/17/18 09:25 09:25 15:48 Creatine Kinase 37 L CK-MB (CK-2) 1.65 1.56 Troponin I < 0.012 < 0.012 NT-Pro-B Natriuret Pep 4300 H 06/17/18 06/17/18 06/17/18 15:48 22:30 22:30 Creatine Kinase 36 L 42 L CK-MB (CK-2) 1.81 Troponin I NT-Pro-B Natriuret Pep 06/19/18 05:26 Creatine Kinase CK-MB (CK-2) Troponin I NT-Pro-B Natriuret Pep 4520 H Impressions: Chest X-Ray 06/17/18 09:23 IMPRESSION: STABLE APPEARANCE OF THE CHEST. MILD CARDIOMEGALY. Assessment & Plan - Diagnosis (1) Acute on chronic systolic and diastolic heart failure, NYHA class 4 Is this a current diagnosis for this admission?: Yes Plan: Patient is got acute on chronic congestive heart failure now in refractory phase. Patient has been begun on IV Lasix with inadequate response. I am going to bolus him with furosemide and increased infusion rate. If he does not respond we will switch diuretics. Also increase his thiazide diuretics and add spironolactone as well. Obviously he needs aquaresis as soon as possible and therefore will also add tolvaptan. His blood pressure is tenuous. I would recommend starting infusion of dobutamine but I see the Dr. Martinez has been consulted and I would leave it to his recommendations.Patient is quite critical and is in the process of being transferred to the ICU. (2) Hyponatremia Is this a current diagnosis for this admission?: Yes Plan: In the setting of congestive heart failure. I would recommend fluid restrictions as is being enforced now. We will start him on tolvaptan and monit or the response in the next few hours. Besides that obviously aquaresis would also help improve his sodium. Measures to institute that has been also made. (3) Acute respiratory failure with hypoxia Is this a current diagnosis for this admission?: Yes Plan: Secondary to his biventricular heart failure. Monitor for the need for CPAP. (4) Anemia Qualifiers: Anemia type: unspecified type Qualified Code(s): D64.9 - Anemia, unspecified Is this a current diagnosis for this admission?: Yes Plan: Looks rather dilutional. No obvious evidences or history to indicate GI bleeds. Monitor. (5) Diabetes mellitus type 2 with neurological manifestations Is this a current diagnosis for this admission?: Yes Plan: Patient is on long-acting sulfonylureas and metformin. Given his critical state I would DC his glipizide XL and recommend usage of short-acting insulin. Want to avoid hypoglycemia at all costs. (6) Dilated cardiomyopathy Is this a current diagnosis for this admission?: Yes Plan: Long-standing and chronic. Unsure of exact etiology. Would get notes from Dr. Montalvo. (7) Hypotension Qualifiers: Hypotension type: unspecified hypotension type Qualified Code(s): I95.9 - Hypotension, unspecified Plan: Blood pressure is rather tenuous. He would definitely benefit from use of inotropic agents. Dr. Martinez is involved and they will discuss with him about the appropriate choice here. (8) Obesity (BMI 30.0-34.9) Is this a current diagnosis for this admission?: Yes Plan: Obviously needs to be looked after his acute crisis is resolved.
[2018-06-19] MEDS ORDERED: TOLVAPTAN 15 MG TABLET PO SCH (11:30)
[2018-06-19] MEDS: DOBUTAMINE HCL/D5W 500 MG/250 ML RTUINJ IV PRN (12:27)
[2018-06-19] MEDS: SPIRONOLACTONE 25 MG TABLET PO SCH (12:47)
[2018-06-19] MEDS: TOLVAPTAN 30 MG TABLET PO SCH (12:48)
[2018-06-19] MEDS ORDERED: SODIUM BICARBONATE 650 MG TABLET PO SCH (13:00)
[2018-06-19 13:08] LABS: BLOOD UREA NITROGEN 15 mg/dL (7-20); CALCIUM 8.6 mg/dL (8.4-10.2); CARBON DIOXIDE 33 mmol/L (22-30); CHLORIDE 75 mmol/L (98-107); GLUCOSE 93 mg/dL (75-110); POTASSIUM 4.6 mmol/L (3.6-5.0)
[2018-06-19 13:11] LABS: ANION GAP 9 (5-19)
[2018-06-19 13:29] LABS: SODIUM 117.4 mmol/L (137-145)
--- NOTE | 2018-06-19 18:09 | PDOC PROGRESS REPORT ---
Subjective Progress Note for:: 06/19/18 Subjective:: Once again today the patient is not feeling much better. His and daughter at the bedside. He still feels extremely weak. Reason For Visit: HEART FAILURE Physical Exam Vital Signs: Temp Pulse Resp BP Pulse Ox 98.3 F 86 18 121/66 96 06/19/18 15:48 06/19/18 15:48 06/19/18 15:48 06/19/18 15:48 06/19/18 16:00 Pulse Oximeter Continuous Start: 06/17/18 12:14 Freq: RTQ4 Status: Active Protocol: Document 06/19/18 16:00 JDR (Rec: 06/19/18 17:53 JDR [id number]) Pulse Oximetry Assessment Oxygen Saturation (92-100) 96 Oxygen Flow Rate (L/min) 1.5 Oxygen Delivery Method Nasal Cannula Equipment Usage Equipment in Use Continuous SpO2 Machine # 4 Intake & Output 06/18/18 06/19/18 06/20/18 06:59 06:59 06:59 Intake Total 0 1091 883 Output Total 50 825 1050 Balance -50 266 -167 Weight 117 kg 119.2 kg General appearance: PRESENT: mild distress, obese, well-developed Head exam: PRESENT: normocephalic Eye exam: PRESENT: conjunctiva pale. ABSENT: scleral icterus Ear exam: PRESENT: normal external ear exam, other - Rhinophyma Mouth exam: PRESENT: dry mucosa, tongue midline Respiratory exam: PRESENT: rales, symmetrical. ABSENT: accessory muscle use, wheezes Cardiovascular exam: PRESENT: RRR, +S1, +S2 Vascular exam: PRESENT: pallor GI/Abdominal exam: PRESENT: normal bowel sounds, soft. ABSENT: tenderness Extremities exam: PRESENT: other - 3+ edema. Pitting edema to the knees. Neurological exam: PRESENT: alert, awake, oriented to person, oriented to place, oriented to situation, CN II-XII grossly intact Psychiatric exam: PRESENT: flat affect. ABSENT: agitated, anxious Focused psych exam: ABSENT: restlessness Results Laboratory Results: 06/19/18 05:26 06/19/18 06/19/18 06/19/18 05:26 05:26 05:26 WBC 7.3 RBC 3.54 L Hgb 9.8 L Hct 28.0 L MCV 79 L MCH 27.6 MCHC 34.9 RDW 13.5 Plt Count 89 L Sodium 114.6 L* Potassium 4.3 Chloride 78 L Carbon Dioxide 32 H Anion Gap 5 BUN 14 Creatinine 0.56 Est GFR ( Amer) > 60 Est GFR (Non-Af Amer) > 60 Glucose 68 L Serum Osmolality 243 L Calcium 8.5 Magnesium 1.7 Albumin 3.4 L 06/19/18 06/19/18 08:52 12:25 WBC RBC Hgb Hct MCV MCH MCHC RDW Plt Count Sodium 115.9 L* 117.4 L* Potassium 4.6 4.6 Chloride 75 L 75 L Carbon Dioxide 31 H 33 H Anion Gap 10 9 BUN 14 15 Creatinine 0.56 0.61 Est GFR ( Amer) > 60 > 60 Est GFR (Non-Af Amer) > 60 > 60 Glucose 115 H 93 Serum Osmolality Calcium 8.5 8.6 Magnesium Albumin 06/17/18 06/17/18 06/17/18 09:25 09:25 15:48 Creatine Kinase 37 L CK-MB (CK-2) 1.65 1.56 Troponin I < 0.012 < 0.012 NT-Pro-B Natriuret Pep 4300 H 06/17/18 06/17/18 06/17/18 15:48 22:30 22:30 Creatine Kinase 36 L 42 L CK-MB (CK-2) 1.81 Troponin I NT-Pro-B Natriuret Pep 06/19/18 05:26 Creatine Kinase CK-MB (CK-2) Troponin I NT-Pro-B Natriuret Pep 4520 H Impressions: Chest X-Ray 06/17/18 09:23 IMPRESSION: STABLE APPEARANCE OF THE CHEST. MILD CARDIOMEGALY. Assessment & Plan - Diagnosis (1) Acute respiratory failure with hypoxia Is this a current diagnosis for this admission?: Yes Plan: The patient remains on supplemental oxygen. His respiratory failure is cardiogenic. Maintain oxygen saturation greater than 90%. (2) Acute on chronic systolic and diastolic heart failure, NYHA class 4 Is this a current diagnosis for this admission?: Yes Plan: Cardiology has been consulted. Appreciate Dr. Martinez's input. We are continuing the carvedilol. The patient is now on IV dobutamine to improve cardiac function and assist diuresis. Spironolactone was also added. The patient is still short of breath but will continue to monitor his intake versus output. Once his diuresis improves his breathing will likely improve as well. (3) Dilated cardiomyopathy Is this a current diagnosis for this admission?: Yes Plan: Repeat echocardiogram again showed ejection fraction to be between 20 and 25%. The patient is anticoagulated for his cardiomyopathy. Anticoagulation is on hold today for central line placement. (4) Hyponatremia Is this a current diagnosis for this admission?: Yes Plan: Nephrology has been consulted. Appreciate Dr. Wisdom input. Dr. Monroy has adjusted the furosemide and has added tolvaptan. Serial metabolic panels are being drawn to monitor his serum sodium. He remains on a fluid restriction. (5) Diabetes mellitus type 2, insulin dependent Is this a current diagnosis for this admission?: Yes Plan: Continue Lantus and sliding scale coverage. So far Accu-Cheks are less than 150. Glipizide has been discontinued to avoid hypoglycemia. 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 Continue to monitor platelet count. (8) Obesity (BMI 30.0-34.9) Is this a current diagnosis for this admission?: Yes Plan: No acute intervention at this time (9) Anemia Qualifiers: Anemia type: unspecified type Qualified Code(s): D64.9 - Anemia, unspecified Is this a current diagnosis for this admission?: Yes Plan: Hemoglobin appears stable. Continue to monitor. - Time Time Spent with patient: 25-34 minutes Medications reviewed and adjusted accordingly: Yes
[2018-06-19] MEDS: TAMSULOSIN HCL 0.4 MG CAP.SR.24H PO SCH (18:13)
[2018-06-19 18:30] LABS: BLOOD UREA NITROGEN 15 mg/dL (7-20); CALCIUM 8.6 mg/dL (8.4-10.2); CARBON DIOXIDE 34 mmol/L (22-30); CHLORIDE 65 mmol/L (98-107); GLUCOSE 97 mg/dL (75-110); POTASSIUM 4.8 mmol/L (3.6-5.0)
[2018-06-19 18:32] LABS: ANION GAP 16 (5-19)
[2018-06-19 18:40] LABS: SODIUM 115.4 mmol/L (137-145)
[2018-06-19] MEDS: NORMAL SALINE 250 ML with FUROSEMIDE 250 MG IV PRN ×2 (20:51)
[2018-06-19] MEDS: INSULIN GLARGINE,HUM.REC.ANLOG 300 UNIT/3 ML INSULN.PEN SUBCUT SCH (21:45)
--- NOTE | 2018-06-19 22:17 | PDOC CONSULTATION ---
Consultation-Blank Consultation: CARDIOLOGY CONSULTATION by Dr. Emmanuelle Martinez on 06/19/2018. Patient seen at 12 noon. 60 minutes spent on this patient, with more than 50% time spent in direct patient care. REASON FOR CONSULTATION: Patient with acute on chronic biventricular systolic failure, and severely reduced ejection fraction in a patient with dilated cardiomyopathy. HISTORY of PRESENT ILLNESS: Patient is a 83-year-old male who gives a history of increasing leg edema and anasarca, and weight gain with the PND orthopnea and shortness of breath., And dyspnea on exertion which culminated into rest shortness of breath. The patient has a known history of cardia myopathy with severely reduced LV ejection fraction. He denies any chest pain discomfort. He also has a history of proximal atrial fibrillation, but no recent recurrence. The patient is on Eliquis with no bleeding complications and no TIA CVA. The patient denies any cough or sputum production. There is no wheezing. He has a history of hypertension and diabetes mellitus which seem to be well-controlled. The patient seen with a sodium of 115, which bodes a grave prognosis, due to the patient's heart failure. Since the patient since admission has not improved much, the patient was started on dobutamine initially at 2.5 mcg/kg/min and increased to 5-minute micrograms per kilogram per minute. He was also started on a Lasix drip. He is also being started on Samsca. The plan is to get a central line and placed by the surgical list, and subsequently transfer the patient to ICU to start the patient on milrinone drip. PAST MEDICAL HISTORY: There is no history of coronary artery disease or NM or anginal symptoms. History of hypertension present. History of paroxysmal atrial fibrillation. The patient is on Eliquis, and there is no history of TIA CVA. The patient also has severe cardiomyopathy with severely reduced LV ejection fraction of 20-25%. The repeat echocardiogram done this admission also shows that the patient has severe LV dysfunction with a LV ejection fraction of 20% to 25%, and also moderate pulmonary hypertension. There is no history of TIA CVA. The patient has a history of diabetes mellitus type 2 [id number]. There is no history of chronic kidney disease. There is no history of TIA CVA. There is no history of asthma or COPD. Note in view of the patient's severe LV dysfunction the patient has an AICD placed. It was thought that in the beginning of June 2018 the patient thought that he had a AICD shock. He was checked in his direct support specialist's office, and it was noted that there was no firing of the AICD. There is no history of syncope. There is no history of COPD or asthma, or pulmonary embolism, or sleep apnea. There is no history of anxiety or depression. Past SURGICAL HISTORY: History of Cardiac Catheterization. History of Cholecystectomy:, Herniorrhaphy, and Orthopedic Surgery. He Is Also Had an AICD Implanted. SOCIAL HISTORY: Former smoker quit smoking a long time ago. No history of EtOH abuse. FAMILY HISTORY: Is positive for CAD, malignancy, and diabetes mellitus. ALLERGIES: No known drug allergies. DISPOSITION: At present the patient is a full code. His is his surrogate healthcare decision maker. REVIEW of SYSTEMS:REVIEW OF SYSTEMS.: CONSTITUTIONAL: Denies fever chills or rigors, complains of generalized fatigue and weakness. HEAD: No history of headaches or head injury. EYES: No history of amblyopia or diplopia no history of amaurosis fugax. YEARS: No history of hearing loss no history of tinnitus, no recurrent ear infections. NOSE: No history of hayfever. No nosebleeds. MOUTH: No history of altered taste sensation, no history of ulcers in the mouth no bleeding from gums. THROAT: No history of odynophagia dysphagia, no recurrent sore throats. SKIN: No history of pruritus, no history of yellowish discoloration of the skin, no skin cancer or psoriasis. NECK: No history of neck pain or neck swelling. No goiter. LUNGS: No history of asthma or COPD. The patient has no history of sleep apnea. No history of wheezing or cough. No symptoms of pneumonia or upper or lower respiratory tract infection. No history of pulmonary embolism. No history of pleuritic chest pain no hemoptysis. CARDIAC:: No history of coronary artery disease, prior NM. There is a history of congestive heart failure. There is a history of PND orthopnea palpitations dizziness or syncope. There is also increasing leg edema weight gain, and anasarca due to biventricular failure. He has a history of paroxysmal atrial fibrillation. At present the patient is in sinus rhythm. The patient has an AICD implanted, with no recent firing. There is a history of hypertension. METABOLIC: No history of obesity present and no history of hyperlipidemia. MUSCULOSKELETAL: No history of arthritis present, and no history of collagen vascular disease. RENAL: No history of chronic kidney disease. No symptoms of UTI. No history of hematuria pyuria or dysuria. ENDOCRINE: There is history off diabetes mellitus. No history of thyroid disease. No history of polydipsia polyuria no history of heat or cold intolerance. GI: No history of GERD symptoms present. No history of GI bleed, and no history of abdominal pain and and or nausea, or vomiting. No fatty food intolerance. No history of GI bleed. No history of altered bowel movements. No history of cirrhosis or ascites. CAN CONVEYOR FEEDER: No history of TIA or CVA. No history of headaches migraines or seizures. PSYCHIATRIC: No history of depression present, no history of anxiety. No history of suicidal or homicidal ideation. VASCULAR: No history of calf or buttock claudication.. No history of DVT. HEMATOLOGICAL no history of bleeding diathesis or clotting disorders. PHYSICAL EXAMINATION: The patient is well-built and well-nourished., In no major distress. He is well-groomed. Selected Entries 06/19/18 11:58 Temperature 97.5 F Temperature Oral Source Pulse Rate 92 Respiratory 18 Rate Blood Pressure 105/62 Blood Pressure 76 Mean BP Location Left Arm BP Position Supine O2 Sat by Pulse 100 Oximetry Oxygen Flow 2.00 Rate Oxygen Delivery Nasal Cannula Method HEAD: Is atraumatic normocephalic. EYES: Pupils are equal round regular reacti ve to light accommodation. Extraocular movements are normal. There is no clinical pallor. There is no scleral icterus. EARS: Tympanic membranes are intact. External auditory canals are clear. NOSE: There is no deviated nasal septum. There is no inflammation of the nasal mucous membranes. MOUTH: Mucous membranes of mouth are moist. Tongue is moist. There is no ulcers in the mouth. There is no bleeding from the gums. THROAT: There is no redness of the oropharynx, and no exudates seen in the throat. SKIN: There is no petechia or ecchymosis. There is no skin rashes or skin lesions. NECK: Is supple. There is JVD present. Carotids are equal there is no bruit. There is no lymphadenopathy, and there is no goiter. LUNGS: There is bibasilar rales of CHF. There is no chest wall tenderness. There is no rhonchi or wheezing. HEART: S1-S2 is heard there is no S3 gallop. S1 is of normal intensity. There is no S4 gallop there is systolic murmur left in the left sternal border and the apex there is no rub. ABDOMEN: Is soft. There is abdominal wall edema present there is no hepatosplenic megaly. Bowel sounds are well heard there is no rebound guarding or rigidity. EXTREMITIES: There is mild pedal edema of the upper extremities/anasarca present. There is 2+ edema bilateral lower extremities. There is no DVT or cellulitis. There is no calf tenderness. There is no sinus or clubbing. Capillary refill is normal. CAN CONVEYOR FEEDER: The patient's conscious less drowsy than yesterday. He moves all 4 extremities and there is no focal deficits. PSYCHIATRIC: When awakened the patient is more alert. He is not agitated or anxious. 06/17/18 06/18/18 06/19/18 10:05 05:45 05:26 WBC 6.6 7.3 RBC 3.61 L 3.54 L Hgb 9.9 L 9.8 L Hct 29.1 L 28.0 L MCV 81 79 L MCH 27.3 27.6 MCHC 33.9 34.9 RDW 13.8 13.5 Plt Count 99 L 89 L VBG pH 7.38 VBG pCO2 55.3 VBG HCO3 31.7 VBG Base Excess 5.4 Sodium Potassium Chloride Carbon Dioxide Anion Gap BUN Creatinine Est GFR (Non-Af Amer) Glucose POC Glucose Calcium 06/19/18 06/19/18 06/19/18 08:52 11:12 12:25 WBC RBC Hgb Hct MCV MCH MCHC RDW Plt Count VBG pH VBG pCO2 VBG HCO3 VBG Base Excess Sodium 115.9 L* 117.4 L* Potassium 4.6 4.6 Chloride 75 L 75 L Carbon Dioxide 31 H 33 H Anion Gap 10 9 BUN 14 15 Creatinine 0.56 0.61 Est GFR (Non-Af Amer) > 60 > 60 Glucose 115 H 93 POC Glucose 130 H Calcium 8.5 8.6 IMPRESSION/RECOMMENDATION: 1. Acute hypoxic respiratory failure due to heart failure. Hypoxia now improved on nasal oxygen and current treatment. 2. 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 Continue patient on dobutamine. Since after the central line has been placed, will start the patient on milrinone. Continue patient's Lasix drip. His blood pressure is much improved, and we will continue the patient's Entresto. Continue the patient on spironolactone and Coreg. 2. Paroxysmal atrial fibrillation: No recurrence continue the patient on Coreg. Continue the patient on Eliquis. 4. Dilated cardiomyopathy with severely reduced LV ejection fraction: Continue inotropic support and anti-cardiomyopathy medication as is being done. 5. Moderate pulmonary hypertension: Most likely right ventricular failure secondary to left ventricular failure. Milrinone infusion should help this. 6. Hyponatremia: Patient started on Samsca. If the sodium does not improve with the aggressive anti-CHF treatment, this will reveal a very grave prognosis. 7. Hypertension: Continue current medication. 8. Diabetes mellitus: Continue antidiabetic treatment. Patient medications reviewed. Medications adjusted. Management plan discussed with attending physician on the case and also the physical medicine physician. Medical decision making is of high complexity. 60 minutes spent on this patient, with more than 50% time spent in direct patient care. Discussed with the patient and the patient's family.
[2018-06-20 00:45] LABS: ANION GAP 8 (5-19); BLOOD UREA NITROGEN 17 mg/dL (7-20); CALCIUM 8.4 mg/dL (8.4-10.2); CARBON DIOXIDE 36 mmol/L (22-30); CHLORIDE 72 mmol/L (98-107); GLUCOSE 114 mg/dL (75-110); POTASSIUM 4.6 mmol/L (3.6-5.0)
[2018-06-20] MEDS: TRAMADOL HCL 50 MG TABLET PO PRN ×3 (00:51→18:48)
[2018-06-20 00:55] LABS: SODIUM 115.7 mmol/L (137-145)
[2018-06-20] MEDS: DOBUTAMINE HCL/D5W 500 MG/250 ML RTUINJ IV PRN ×2 (03:46→18:48)
[2018-06-20 07:03] LABS: ANION GAP 10 (5-19); BLOOD UREA NITROGEN 16 mg/dL (7-20); CALCIUM 8.7 mg/dL (8.4-10.2); CARBON DIOXIDE 36 mmol/L (22-30); CHLORIDE 71 mmol/L (98-107); GLUCOSE 85 mg/dL (75-110); POTASSIUM 4.3 mmol/L (3.6-5.0)
[2018-06-20 07:12] LABS: SODIUM 116.8 mmol/L (137-145)
[2018-06-20] MEDS: CARVEDILOL 6.25 MG TABLET PO SCH ×2 (09:28→21:49)
[2018-06-20] MEDS: PREGABALIN 75 MG CAPSULE PO SCH ×2 (09:28→21:49)
[2018-06-20] MEDS: LANSOPRAZOLE 30 MG TAB.RAP.DR PO SCH (09:28)
[2018-06-20] MEDS: DOCUSATE SODIUM 100 MG CAPSULE PO SCH ×2 (09:28→18:49)
[2018-06-20] MEDS: ASPIRIN 81 MG TABLET, ENT COATED PO SCH (09:29)
[2018-06-20] MEDS: SPIRONOLACTONE 25 MG TABLET PO SCH (09:29)
[2018-06-20] MEDS: METOLAZONE 2.5 MG TABLET PO SCH ×2 (09:29→18:50)
[2018-06-20] MEDS: APIXABAN 5 MG TABLET PO SCH ×2 (09:30→18:49)
[2018-06-20] MEDS: MAGNESIUM OXIDE 400 MG TABLET PO SCH (09:34)
[2018-06-20] MEDS: TOLVAPTAN 30 MG TABLET PO SCH (09:35)
--- NOTE | 2018-06-20 12:31 | Operative Report ---
Bedside Procedure - History of Present Illness Indication for Procedure: pressors Date: 06/20/18 Surgeon: IDA THOMASON - Central Line Right Internal jugular Consent obtained: Yes Central line pre-insertion: Sterile PPE donned, Chloraprep applied Central line size (Fr.): 16 Central line lumen type: Cordis/Introducer Anesthetic type: 1% Lidocaine mL's of anesthesia: 5 Ultrasound guided: Yes CM at insertion site: 15 Line secured with sutures: Yes Central line post-insertion: Blood return from lumens, Sutured, Position confirmed w/ CXR Number of attempts: 1 Complications: No
--- NOTE | 2018-06-20 13:20 | RADIOLOGY REPORT (SQ) ---
EXAM DESCRIPTION: CHEST SINGLE VIEW COMPLETED DATE/TIME: 06/20/2018 1:01 pm REASON FOR STUDY: Central Line Placement COMPARISON: 06/17/2018. NUMBER OF VIEWS: One view. TECHNIQUE: Single frontal radiographic view of the chest acquired. LIMITATIONS: None. FINDINGS: LUNGS AND PLEURA: Mild chronic interstitial changes. No infiltrates, masses or pneumothor ax. No pleural effusion. MEDIASTINUM AND HILAR STRUCTURES: No masses. Contour normal. HEART AND VASCULAR STRUCTURES: Heart enlarged without failure. Normal vasculature. BONES: No acute findings. Old rib fractures. HARDWARE: Central line on the right side with the tip in the region of the superior vena cava. Pacem estelle. OTHER: No other significant finding. IMPRESSION: NO PNEUMOTHORAX FOLLOWING CENTRAL LINE PLACEMENT. OTHERWISE NO CHANGE. TECHNICAL DOCUMENTATION: JOB ID: [id number] [employer]- All Rights Reserved Reading location - IP/workstation name: [email or web address]
[2018-06-20 14:32] LABS: ALANINE AMINOTRANSFERASE 28 U/L (21-72); ALBUMIN 3.5 g/dL (3.5-5.0); ALKALINE PHOSPHATASE 70 U/L (38-126); ANION GAP 10 (5-19); ASPARTATE AMINO TRANSFERASE 32 U/L (17-59); BILIRUBIN,DIRECT 0.1 mg/dL (0.0-0.4); BILIRUBIN,TOTAL 1.5 mg/dL (0.2-1.3); BLOOD UREA NITROGEN 15 mg/dL (7-20); CALCIUM 8.5 mg/dL (8.4-10.2); CARBON DIOXIDE 37 mmol/L (22-30); CHLORIDE 67 mmol/L (98-107); GLUCOSE 141 mg/dL (75-110); POTASSIUM 4.3 mmol/L (3.6-5.0)
[2018-06-20 14:36] LABS: SODIUM 113.8 mmol/L (137-145)
[2018-06-20] MEDS: MILRINONE LACTATE/D5W 20 MG/100 ML RTUINJ IV PRN ×2 (16:31→22:26)
--- NOTE | 2018-06-20 17:31 | PDOC PROGRESS REPORT ---
Subjective Progress Note for:: 06/20/18 Reason For Visit: Patient was seen earlier this morning on the floor and then I also saw him this afternoon after he had been transferred to the ICU. He has been also begun on low-dose of milrinone. Patient is is looking much better than when I saw him yesterday. He is more awake and alert and responsive. Is he has no more headaches. He denies any history of chest pains. He has some shortness of breath with exertion but otherwise is feeling better. No complaints of an a bdominal pains. Most of nausea vomiting. Labs and medications were reviewed. His sodium was up to 116 this morning. Discussions were done with his daughter at the bedside. Physical Exam Vital Signs: Temp Pulse Resp BP Pulse Ox 98.4 F 91 13 109/64 97 06/20/18 08:21 06/20/18 08:21 06/20/18 14:00 06/20/18 13:51 06/20/18 16:20 Pulse Oximeter Continuous Start: 06/17/18 12:14 Freq: RTQ4 Status: Complete Protocol: Document 06/20/18 11:20 LDA (Rec: 06/20/18 11:20 [id number]) Pulse Oximetry Assessment Equipment Usage Equipment Discontinued Continuous SpO2 Machine # 4 Intake & Output 06/19/18 06/20/18 06/21/18 06:59 06:59 06:59 Intake Total 1091 1892 Output Total 825 4800 Balance 266 -2908 Weight 119.2 kg 116.1 kg 110.3 kg General appearance: PRESENT: no acute distress Respiratory exam: PRESENT: clear to auscultation stanislaw, crackles, decreased breath sounds Cardiovascular exam: PRESENT: +S1, +S2 GI/Abdominal exam: PRESENT: normal bowel sounds, soft. ABSENT: organomegaly, tenderness Extremities exam: PRESENT: +1 edema Neurological exam: PRESENT: alert, awake, oriented to person, oriented to place Psychiatric exam: PRESENT: appropriate affect Skin exam: ABSENT: cyanosis, erythema, mottled, rash Results Laboratory Results: 06/19/18 05:26 06/20/18 13:00 06/19/18 06/19/18 06/20/18 17:50 19:17 00:14 Sodium 115.4 L* 115.7 L* Potassium 4.8 4.6 Chloride 65 L 72 L Carbon Dioxide 34 H 36 H Anion Gap 16 8 BUN 15 17 Creatinine 0.63 0.65 Est GFR ( Amer) > 60 > 60 Est GFR (Non-Af Amer) > 60 > 60 Glucose 97 114 H Calcium 8.6 8.4 Magnesium Total Bilirubin AST ALT Alkaline Phosphatase Total Protein Albumin Urine Osmolality 269 L 06/20/18 06/20/18 06/20/18 05:45 13:00 13:00 Sodium 116.8 L* Cancelled 113.8 L* Potassium 4.3 Cancelled 4.3 Chloride 71 L Cancelled 67 L Carbon Dioxide 36 H Cancelled 37 H Anion Gap 10 Cancelled 10 BUN 16 Cancelled 15 Creatinine 0.67 Cancelled 0.66 Est GFR ( Amer) > 60 Cancelled > 60 Est GFR (Non-Af Amer) > 60 Cancelled > 60 Glucose 85 Cancelled 141 H Calcium 8.7 Cancelled 8.5 Magnesium 1.6 Total Bilirubin 1.5 H AST 32 ALT 28 Alkaline Phosphatase 70 Total Protein 6.0 L Albumin 3.5 Urine Osmolality 06/17/18 06/17/18 06/17/18 09:25 09:25 15:48 Creatine Kinase 37 L CK-MB (CK-2) 1.65 1.56 Troponin I < 0.012 < 0.012 NT-Pro-B Natriuret Pep 4300 H 06/17/18 06/17/18 06/17/18 15:48 22:30 22:30 Creatine Kinase 36 L 42 L CK-MB (CK-2) 1.81 Troponin I NT-Pro-B Natriuret Pep 06/19/18 06/20/18 05:26 13:00 Creatine Kinase CK-MB (CK-2) Troponin I NT-Pro-B Natriuret Pep 4520 H 5060 H Impressions: Chest X-Ray 06/20/18 12:02 IMPRESSION: NO PNEUMOTHORAX FOLLOWING CENTRAL LINE PLACEMENT. OTHERWISE NO CHANGE. Assessment & Plan - Diagnosis (1) Acute on chronic systolic and diastolic heart failure, NYHA class 4 Is this a current diagnosis for this admission?: Yes Plan: Currently improving. He has good diuresis to the current management. I will continue on the same. (2) Hyponatremia Is this a current diagnosis for this admission?: Yes Plan: Status quo. I would continue on the present management. Clinically he looks better. He does not show any clinical adverse effects of hyponatremia at the moment as compared to yesterday. Might have to back off the diuretics a little bit if his sodium does not go higher as expected later on. He has been closely monitored with timed Chem-7's. (3) Acute respiratory failure with hypoxia Is this a current diagnosis for this admission?: Yes Plan: Clinically looks better. His heart failure seems to be improving clinically and and Radiologically (4) Anemia Qualifiers: Anemia type: unspecified type Qualified Code(s): D64.9 - Anemia, unspecif ied Is this a current diagnosis for this admission?: Yes Plan: Stable. (5) Diabetes mellitus type 2 with neurological manifestations Is this a current diagnosis for this admission?: Yes Plan: Blood sugars are stable (6) Dilated cardiomyopathy Is this a current diagnosis for this admission?: Yes Plan: Presently decompensated. Continue current management. Sulfonation Equipment Operator on board. (7) Hypotension Qualifiers: Hypotension type: unspecified hypotension type Qualified Code(s): I95.9 - Hypotension, unspecified Plan: Relatively stable on current inotropic supports. Monitor. (8) Obesity (BMI 30.0-34.9) Is this a current diagnosis for this admission?: Yes
[2018-06-20] MEDS: TAMSULOSIN HCL 0.4 MG CAP.SR.24H PO SCH (18:48)
[2018-06-20 19:39] LABS: ALANINE AMINOTRANSFERASE 28 U/L (21-72); ALBUMIN 3.6 g/dL (3.5-5.0); ALKALINE PHOSPHATASE 70 U/L (38-126); ASPARTATE AMINO TRANSFERASE 30 U/L (17-59); BILIRUBIN,TOTAL 1.5 mg/dL (0.2-1.3); BLOOD UREA NITROGEN 15 mg/dL (7-20); CALCIUM 8.5 mg/dL (8.4-10.2); CHLORIDE 67 mmol/L (98-107); GLUCOSE 195 mg/dL (75-110); POTASSIUM 4.2 mmol/L (3.6-5.0); TOTAL PROTEIN 5.9 g/dL (6.3-8.2)
[2018-06-20 19:46] LABS: ANION GAP 7 (5-19)
[2018-06-20 19:48] LABS: CARBON DIOXIDE 39 mmol/L (22-30); SODIUM 113.3 mmol/L (137-145)
--- NOTE | 2018-06-20 20:50 | PDOC PROGRESS REPORT ---
Subjective Progress Note for:: 06/20/18 Subjective:: The patient was seen earlier today. He actually looks more comfortable. He is beginning to have good diuresis. Reason For Visit: HEART FAILURE Physical Exam Vital Signs: Temp Pulse Resp BP Pulse Ox 97.9 F 106 H 13 107/54 L 94 06/20/18 20:00 06/20/18 20:00 06/20/18 20:06 06/20/18 20:06 06/20/18 20:06 Pulse Oximeter Continuous Start: 06/17/18 12:14 Freq: RTQ4 Status: Complete Protocol: Document 06/20/18 11:20 LDA (Rec: 06/20/18 11:20 [email or web address] [id number]) Pulse Oximetry Assessment Equipment Usage Equipment Discontinued Continuous SpO2 Machine # 4 Intake & Output 06/19/18 06/20/18 06/21/18 06:59 06:59 06:59 Intake Total 1091 1892 212 Output Total 825 4800 3100 Balance 455 -2431 -7609 Weight 119.2 kg 116.1 kg 110.3 kg General appearance: PRESENT: no acute distress, cooperative Head exam: PRESENT: normocephalic, other - Rhinophyma Eye exam: PRESENT: conjunctiva pale Neck exam: ABSENT: carotid bruit, lymphadenopathy Respiratory exam: PRESENT: rales - Bilateral bases. Improved from yesterday., symmetrical, other - Nasal cannula in place. ABSENT: accessory muscle use, rhonchi, wheezes Cardiovascular exam: PRESENT: irregular rhythm GI/Abdominal exam: PRESENT: normal bowel sounds, soft. ABSENT: guarding, t enderness Extremities exam: PRESENT: +2 edema - To the knees Neurological exam: PRESENT: alert, awake, oriented to person, oriented to place, oriented to time, oriented to situation Psychiatric exam: PRESENT: appropriate affect. ABSENT: agitated, anxious Focused psych exam: ABSENT: restlessness Results Laboratory Results: 06/19/18 05:26 06/20/18 19:00 06/20/18 06/20/18 06/20/18 00:14 05:45 13:00 Sodium 115.7 L* 116.8 L* Cancelled Potassium 4.6 4.3 Cancelled Chloride 72 L 71 L Cancelled Carbon Dioxide 36 H 36 H Cancelled Anion Gap 8 10 Cancelled BUN 17 16 Cancelled Creatinine 0.65 0.67 Cancelled Est GFR ( Amer) > 60 > 60 Cancelled Est GFR (Non-Af Amer) > 60 > 60 Cancelled Glucose 114 H 85 Cancelled Calcium 8.4 8.7 Cancelled Magnesium Total Bilirubin AST ALT Alkaline Phosphatase Total Protein Albumin 06/20/18 06/20/18 13:00 19:00 Sodium 113.8 L* 113.3 L* Potassium 4.3 4.2 Chloride 67 L 67 L Carbon Dioxide 37 H 39 H Anion Gap 10 7 BUN 15 15 Creatinine 0.66 0.69 Est GFR ( Amer) > 60 > 60 Est GFR (Non-Af Amer) > 60 > 60 Glucose 141 H 195 H Calcium 8.5 8.5 Magnesium 1.6 1.6 Total Bilirubin 1.5 H 1.5 H AST 32 30 ALT 28 28 Alkaline Phosphatase 70 70 Total Protein 6.0 L 5.9 L Albumin 3.5 3.6 06/17/18 06/17/18 06/17/18 09:25 09:25 15:48 Creatine Kinase 37 L CK-MB (CK-2) 1.65 1.56 Troponin I < 0.012 < 0.012 NT-Pro-B Natriuret Pep 4300 H 06/17/18 06/17/18 06/17/18 15:48 22:30 22:30 Creatine Kinase 36 L 42 L CK-MB (CK-2) 1.81 Troponin I NT-Pro-B Natriuret Pep 06/19/18 06/20/18 05:26 13:00 Creatine Kinase CK-MB (CK-2) Troponin I NT-Pro-B Natriuret Pep 4520 H 5060 H Impressions: Chest X-Ray 06/20/18 12:02 IMPRESSION: NO PNEUMOTHORAX FOLLOWING CENTRAL LINE PLACEMENT. OTHERWISE NO CHANGE. Assessment & Plan - Diagnosis (1) Acute respiratory failure with hypoxia Is this a current diagnosis for this admission?: Yes Plan: The patient still requires oxygen supplementation. Etiology of failure is cardiogenic. He is improving. (2) Acute on chronic systolic and diastolic heart failure, NYHA class 4 Is this a current diagnosis for this admission?: Yes Plan: Because of the decreased ejection fraction the patient is now on dobutamine and milrinone in addition to the furosemide infusion, Aldactone and tolvaptan. We will try and achieve a 3-4 L negative balance daily. (3) Dilated cardiomyopathy Is this a current diagnosis for this admission?: Yes Plan: Positive inotropes as noted above. The patient does have an implanted defibrillator. (4) Hyponatremia Is this a current diagnosis for this admission?: Yes Plan: Despite improving diuresis the serum sodium is still low. I did review his i ntake and output and he has not been on the strict 1 L oral fluid restriction. He took in 1.8 L yesterday. I called the ICU and asked that they reinforce the 1 L restriction. (5) Diabetes mellitus type 2, insulin dependent Is this a current diagnosis for this admission?: Yes Plan: Glucose checks are less than 200. Continue Lantus and sliding scale at this time. (6) Diabetes mellitus type 2 with neurological manifestations Is this a current diagnosis for this admission?: Yes Plan: Continue Lyrica. The patient has not complained of any neuropathic issues. (7) Thrombocytopenia Is this a current diagnosis for this admission?: Yes Plan: Platelet counts continue to trickle down. He is not on any heparin products due to the anticoagulation with apixaban. We will continue to monitor. (8) Obesity (BMI 30.0-34.9) Is this a current diagnosis for this admission?: Yes Plan: No acute intervention at this time (9) Anemia Qualifiers: Anemia type: unspecified type Qualified Code(s): D64.9 - Anemia, unspecified Is this a current diagnosis for this admission?: Yes Plan: Hemoglobin stable. Continue to monitor. - Time Time Spent with patient: 35 or more minutes Medications reviewed and adjusted accordingly: Yes
[2018-06-20 21:39] LABS: ALANINE AMINOTRANSFERASE 25 U/L (21-72); ALBUMIN 3.4 g/dL (3.5-5.0); ALKALINE PHOSPHATASE 65 U/L (38-126); ANION GAP 8 (5-19); ASPARTATE AMINO TRANSFERASE 30 U/L (17-59); BILIRUBIN,DIRECT 0.2 mg/dL (0.0-0.4); BILIRUBIN,TOTAL 1.5 mg/dL (0.2-1.3); BLOOD UREA NITROGEN 17 mg/dL (7-20); CALCIUM 8.3 mg/dL (8.4-10.2); CARBON DIOXIDE 39 mmol/L (22-30); CHLORIDE 68 mmol/L (98-107); GLUCOSE 182 mg/dL (75-110); TOTAL PROTEIN 5.9 g/dL (6.3-8.2)
[2018-06-20] MEDS ORDERED: INSULIN GLARGINE,HUM.REC.ANLOG 1,000 UNIT/10 ML UNIT SUBCUT ONE (21:46)
[2018-06-20] MEDS: INSULIN LISPRO 100 UNIT/ML 3 ML VIAL SUBCUT PRN (21:49)
[2018-06-20] MEDS: INSULIN GLARGINE,HUM.REC.ANLOG 300 UNIT/3 ML INSULN.PEN SUBCUT SCH (21:50)
[2018-06-20] MEDS: PHARMACY COMMUNICATION ORDER MC SCH (22:02)
--- NOTE | 2018-06-20 22:14 | Progress Note ---
Provider Note Provider Note: PROGRESS NOTE by Dr. Emmanuelle Watts on 06/20/2018. SUBJECTIVE. The patient's sodium is come up a little bit. He is got really good diuresis on dobutamine at 5 mcg/kg/min and also with increasing the Lasix drip. He does have orthopnea. And some episodes of PND. He has occasional PVCs seen on the monitor. There is no ventricular tachycardia. There is no firing of the AICD. The patient denies any chest pain. He claims that shortness of breath is better. But still has some degree of shortness of breath. There is no cough or wheezing. His leg edema is improved as also his generalized edema is improved a little. There is no recurrence of atrial fibrillation. There is no bleeding on Eliquis. There is no TIA CVA symptoms. The patient appears to be a little more awake and less drowsy compared to yesterday. His blood pressure has improved. Later on after seeing his blood pressure response to milrinone will start the patient back on his Entresto. Note the plan is to get the patient to have a central line, and then start the patient on milrinone infusion which was addressed about his biventricular failure and is moderate pulmonary hypertension. PHYSICAL EXAMINATION: The patient is mildly obese. At present in no acute distress. He he seems to be slightly older than his stated age. Selected Entries 06/20/18 08:21 Temperature 98.4 F Temperature Oral Source Respiratory 16 Rate Blood Pressure 122/64 Blood Pressure 83 Mean BP Location Left Arm BP Position Supine O2 Sat by Pulse 99 Oximetry Oxygen Flow 2.00 Rate Oxygen Delivery Nasal Cannula Method HEAD: Is atraumatic normocephalic. EYES: Pupils are equal round regular reactive to light accommodation. Extraocular movements are normal. There is no clinical pallor. There is no scleral icterus. EARS: Tympanic membranes are intact. External auditory canals are clear. NOSE: There is no deviated nasal septum. There is no inflammation of the nasal mucous membranes. MOUTH: Mucous membranes of mouth are moist. Tongue is moist. There is no ulcers in the mouth. There is no bleeding from the gums. THROAT: There is no redness of the oropharynx, and no exudates seen in the throat. SKIN: There is no petechia or ecchymosis. There is no skin rashes or skin lesions. NECK: Is supple. There is JVD present. Carotids are equal there is no bruit. There is no lymphadenopathy, and there is no goiter. LUNGS: There is bibasilar rales of CHF. There is no chest wall tenderness. There is no rhonchi or wheezing. HEART: S1-S2 is heard there is no S3 gallop. There is no S4 gallop there is systolic murmur left sternal border and the apex there is no rub. ABDOMEN: Is soft. There is abdominal wall edema present there is no hepatosplenic megaly. Bowel sounds are well heard there is no rebound guarding or rigidity. EXTREMITIES: There is mild pedal edema of the upper extremities/anasarca present. There is 2+ edema bilateral lower extremities. There is no DVT or cellulitis. There is no calf tenderness. There is no sinus or clubbing. Capillary refill is normal. BEAM DYER: The patient's conscious less drowsy than yesterday. He moves all 4 extremities and there is no focal deficits. PSYCHIATRIC: When awakened the patient is more alert. He is not agitated or anxious. 06/20/18 06/20/18 00:14 05:45 Sodium 115.7 L* 116.8 L* Potassium 4.6 4.3 Chloride 72 L 71 L Carbon Dioxide 36 H 36 H Anion Gap 8 10 BUN 17 16 Creatinine 0.65 0.67 Est GFR (Non-Af Amer) > 60 > 60 Glucose 114 H 85 Calcium 8.4 8.7 The patient's 24-hour urine output is 4800 mL. Input is 1892. The patient's chest x-ray shows after the central line placement that the central line is in good place. There is no pneumothorax. There is cardiomegaly. Without x-ray evidence of heart failure. IMPRESSION/RECOMMENDATION: 1. Acute hypoxic respiratory failure due to heart failure. Hypoxia no improved on nasal oxygen and current treatment. 2. 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 Continue patient on dobutamine. Since now the central line has been placed. The patient on milrinone. Continue patient's Lasix drip. His blood pressure is much improved, and hence we will restart the patient's Entresto and his previous dose. Continue the patient on spironolactone and Coreg. 2. Paroxysmal atrial fibrillation: No recurrence continue the patient on Coreg. Continue the patient on Eliquis. 4. Dilated cardiomyopathy with severely reduced LV ejection fraction: Continue inotropic support and anti-cardiomyopathy medication as is being done. 5. Moderate pulmonary hypertension: Most likely right ventricular failure secondary to left ventricular failure. 6. Hyponatremia: Patient started on Samsca. If the sodium does not improve with the aggressive anti-CHF treatment, this will board a very grave prognosis. 7. Hypertension: Continue current medication. 8. Diabetes mellitus: Continue antidiabetic treatment. Medications reviewed. Medications adjusted. Management plan discussed with the patient's attending physician, and other caregiving providers on the case. Discussed with the patient and patient's family. Medical decision making is of high complexity. 40 minutes spent on this patient with more than 50% of time spent in direct patient care.
[2018-06-20] MEDS ORDERED: SACUBITRIL/VALSARTAN 97 MG/103 MG TABLET PO SCH (22:30)
[2018-06-20] MEDS ORDERED: SACUBITRIL/VALSARTAN 97 MG/103 MG TABLET PO ONE (23:15)
[2018-06-21 01:49] LABS: ALANINE AMINOTRANSFERASE 31 U/L (21-72); ALBUMIN 3.4 g/dL (3.5-5.0); ALKALINE PHOSPHATASE 66 U/L (38-126); ASPARTATE AMINO TRANSFERASE 29 U/L (17-59); BILIRUBIN,TOTAL 1.4 mg/dL (0.2-1.3); BLOOD UREA NITROGEN 16 mg/dL (7-20); CALCIUM 8.3 mg/dL (8.4-10.2); CARBON DIOXIDE 38 mmol/L (22-30); CHLORIDE 69 mmol/L (98-107); GLUCOSE 145 mg/dL (75-110); POTASSIUM 3.9 mmol/L (3.6-5.0); TOTAL PROTEIN 5.6 g/dL (6.3-8.2)
[2018-06-21 01:51] LABS: ANION GAP 9 (5-19)
[2018-06-21 01:59] LABS: SODIUM 115.7 mmol/L (137-145)
[2018-06-21 05:00] LABS: ALANINE AMINOTRANSFERASE 32 U/L (21-72); ALBUMIN 3.5 g/dL (3.5-5.0); ALKALINE PHOSPHATASE 66 U/L (38-126); ASPARTATE AMINO TRANSFERASE 30 U/L (17-59); BILIRUBIN,DIRECT 0.2 mg/dL (0.0-0.4); BILIRUBIN,TOTAL 1.7 mg/dL (0.2-1.3); BLOOD UREA NITROGEN 18 mg/dL (7-20); CALCIUM 8.4 mg/dL (8.4-10.2); GLUCOSE 139 mg/dL (75-110); POTASSIUM 4.1 mmol/L (3.6-5.0); TOTAL PROTEIN 5.9 g/dL (6.3-8.2)
[2018-06-21 05:23] LABS: CARBON DIOXIDE 36 mmol/L (22-30); CHLORIDE 70 mmol/L (98-107)
[2018-06-21 05:25] LABS: ANION GAP 10 (5-19); SODIUM 115.8 mmol/L (137-145)
[2018-06-21] MEDS: LANSOPRAZOLE 30 MG TAB.RAP.DR PO SCH (05:42)
[2018-06-21] MEDS: NORMAL SALINE 250 ML with FUROSEMIDE 250 MG IV PRN ×4 (05:42→20:02)
[2018-06-21] MEDS: MILRINONE LACTATE/D5W 20 MG/100 ML RTUINJ IV PRN ×2 (05:43→14:26)
[2018-06-21] MEDS: TRAMADOL HCL 50 MG TABLET PO PRN ×2 (06:27→21:43)
[2018-06-21] MEDS ORDERED: BISACODYL 5 MG TABEC PO PRN (08:33)
--- NOTE | 2018-06-21 08:47 | PDOC PROGRESS REPORT ---
Subjective Progress Note for:: 06/21/18 Subjective:: Patient appears to be resting comfortably. He told the nurse this morning that he thinks today is heart is going to stop. Last night he was thinking about his current situation and realizing that he is not feeling any better despite the aggressive treatment. See discussion below. Reason For Visit: HEART FAILURE Physical Exam Vital Signs: Temp Pulse Resp BP Pulse Ox 98.2 F 106 H 15 113/66 98 06/21/18 05:56 06/20/18 20:00 06/21/18 04:36 06/21/18 04:36 06/21/18 08:22 Pulse Oximeter Continuous Start: 06/17/18 12:14 Freq: RTQ4 Status: Complete Protocol: Document 06/20/18 11:20 LDA (Rec: 06/20/18 11:20 LDA [id number]) Pulse Oximetry Assessment Equipment Usage Equipment Discontinued Continuous SpO2 Machine # 4 Intake & Output 06/20/18 06/21/18 06/22/18 06:59 06:59 06:59 Intake Total 1892 492 Output Total 6494 0883 Balance -2908 -1421 Weight 116.1 kg 110.2 kg General appearance: PRESENT: no acute distress, well-developed Head exam: PRESENT: normocephalic, other - Rhinophyma Eye exam: PRESENT: conjunctiva pale Ear exam: PRESENT: normal external ear exam Mouth exam: PRESENT: dry mucosa Respiratory exam: PRESENT: rales - Bilateral bases, symmetrical, unlabored. ABSENT: accessory muscle use, crackles, rhonchi, wheezes Cardiovascular exam: PRESENT: irregular rhythm, +S1, +S2, other - Faint heart s ounds. Probable underlying regular rate and rhythm with multiple ectopic beats Vascular exam: PRESENT: pallor GI/Abdominal exam: PRESENT: normal bowel sounds, soft, other - Protuberant abdomen. ABSENT: guarding, tenderness Rectal exam: PRESENT: deferred Extremities exam: PRESENT: +2 edema - Through the knees bilaterally Neurological exam: PRESENT: awake, oriented to person, oriented to place, oriented to situation, other - Slightly drowsy this morning Psychiatric exam: PRESENT: flat affect. ABSENT: agitated, anxious Focused psych exam: ABSENT: restlessness Skin exam: PRESENT: pallor Results Laboratory Results: 06/19/18 05:26 06/21/18 04:40 06/20/18 06/20/18 06/20/18 13:00 13:00 19:00 Sodium Cancelled 113.8 L* 113.3 L* Potassium Cancelled 4.3 4.2 Chloride Cancelled 67 L 67 L Carbon Dioxide Cancelled 37 H 39 H Anion Gap Cancelled 10 7 BUN Cancelled 15 15 Creatinine Cancelled 0.66 0.69 Est GFR ( Amer) Cancelled > 60 > 60 Est GFR (Non-Af Amer) Cancelled > 60 > 60 Glucose Cancelled 141 H 195 H Calcium Cancelled 8.5 8.5 Magnesium 1.6 1.6 Total Bilirubin 1.5 H 1.5 H AST 32 30 ALT 28 28 Alkaline Phosphatase 70 70 Total Protein 6.0 L 5.9 L Albumin 3.5 3.6 06/20/18 06/21/18 06/21/18 21:12 01:29 04:40 Sodium 115.0 L* 115.7 L* 115.8 L* Potassium 4.0 3.9 4.1 Chloride 68 L 69 L 70 L Carbon Dioxide 39 H 38 H 36 H Anion Gap 8 9 10 BUN 17 16 18 Creatinine 0.69 0.79 0.72 Est GFR ( Amer) > 60 > 60 > 60 Est GFR (Non-Af Amer) > 60 > 60 > 60 Glucose 182 H 145 H 139 H Calcium 8.3 L 8.3 L 8.4 Magnesium 1.7 1.6 1.7 Total Bilirubin 1.5 H 1.4 H 1.7 H AST 30 29 30 ALT 25 31 32 Alkaline Phosphatase 65 66 66 Total Protein 5.9 L 5.6 L 5.9 L Albumin 3.4 L 3.4 L 3.5 06/17/18 06/17/18 06/17/18 09:25 09:25 15:48 Creatine Kinase 37 L CK-MB (CK-2) 1.65 1.56 Troponin I < 0.012 < 0.012 NT-Pro-B Natriuret Pep 4300 H 06/17/18 06/17/18 06/17/18 15:48 22:30 22:30 Creatine Kinase 36 L 42 L CK-MB (CK-2) 1.81 Troponin I NT-Pro-B Natriuret Pep 06/19/18 06/20/18 05:26 13:00 Creatine Kinase CK-MB (CK-2) Troponin I NT-Pro-B Natriuret Pep 4520 H 5060 H Impressions: Chest X-Ray 06/20/18 12:02 IMPRESSION: NO PNEUMOTHORAX FOLLOWING CENTRAL LINE PLACEMENT. OTHERWISE NO CHANGE. Assessment & Plan - Diagnosis (1) Acute respiratory failure with hypoxia Is this a current diagnosis for this admission?: Yes Plan: The patient still requires oxygen supplementation. Etiology of failure is cardiogenic. The patient states that he feels poorly again this morning. See discussion below. (2) Acute on chronic systolic and diastolic heart failure, NYHA class 4 Is this a current diagnosis for this admission?: Yes Plan: The patient reported to the nurse this morning that he feels today is heart is going to stop. With this in mind I had a discussion with him about changing his full CODE STATUS in light of his depressed ejection fraction and limited response to dobutamine and milrinone. I explained the difference between DNR and comfort measures. I told him that with his current underlying comorbidities if he were placed on a ventilator there would be a very slim chance that he could wean and be extubated but more importantly because of his depressed ejection fraction (20-25%), large area of akinesis by echocardiogram and limited response to inotropic agents even if his defibrillator fires it may have little effect. I do not believe that he would survive resuscitation. He would like to discuss this with his family. I did call his to let her know about his change of heart with regard to prognosis. She and her daughter will be coming to the hospital soon. It would be helpful if they speak with nephrology and cardiology as well as myself. I did explain that it changed to DNR would not change our aggressive treatment plan at this time. That decision only comes into play if he were to experience acute hypoxic failure and or cardiac arrest. (3) Dilated cardiomyopathy Is this a current diagnosis for this admission?: Yes Plan: Positive inotropes as noted above. The patient does have an implanted defibrillator. The patient is exhibiting more ectopy. His dobutamine dose was in fact lowered. Please also see his echocardiogram report from this admission. (4) Hyponatremia Is this a current diagnosis for this admission?: Yes Plan: Despite aggressive measures and improved negative fluid balance the patient's serum sodium is still less than 120. I have decreased the volume allowed with regard to fluid restriction. I will defer to nephrology for changes in the treatment plan. I believe this is a poor prognostic factor for the patient. (5) Hypothyroidism Qualifiers: Hypothyroidism type: unspecified Qualified Code(s): E03.9 - Hypothyroidism, unspecified Is this a current diagnosis for this admission?: Yes Plan: I did check a TSH level. It was elevated at greater than 4. I have started 25 mcg of levothyroxine. It is unlikely that the patient will see an effect of the medication soon. Regardless we will initiate correction. (6) Diabetes mellitus type 2, insulin dependent Is this a current diagnosis for this admission?: Yes Plan: On his current regimen all of his Accu-Cheks are below 200. Continue the same medications. (7) Diabetes mellitus type 2 with neurological manifestations Is this a current diagnosis for this admission?: Yes Plan: Currently asymptomatic. Continue Lyrica and as needed tramadol. (8) Thrombocytopenia Is this a current diagnosis for this admission?: Yes Plan: The patient's platelet count has been slowly decreasing. I have ordered another CBC for tomorrow. There is no evidence of bleeding at this time. (9) Obesity (BMI 30.0-34.9) Is this a current diagnosis for this admission?: Yes Plan: No acute intervention at this time. Serum iron level was normal. We will continue to monitor hemoglobin and transfuse if clinically indicated. (10) Anemia Qualifiers: Anemia type: unspecified type Qualified Code(s): D64.9 - Anemia, unspecified Is this a current diagnosis for this admission?: Yes - Time Time Spent with patient: 35 or more minutes Medications reviewed and adjusted accordingly: Yes - Plan Summary Plan Summary: As noted above the patient reported to the nurse and to myself that he thinks his heart is going to give out today. I did have a discussion with the patient with his nurse at the bedside reviewing his current situation, limited response to aggressive interventions and poor systolic function. I explained the difference between full code, DNR and comfort measures. I did call the patient's to let her know about his current state of mind. We had the same discussion that I had with the patient. They will be coming in to sit with the patient. We will likely discuss the current situation and determine if they wish to change his full CODE STATUS.
[2018-06-21] MEDS: PREGABALIN 75 MG CAPSULE PO SCH ×2 (09:07→21:43)
[2018-06-21] MEDS: APIXABAN 5 MG TABLET PO SCH ×2 (09:07→17:19)
[2018-06-21] MEDS: DOCUSATE SODIUM 100 MG CAPSULE PO SCH ×2 (09:08→17:19)
[2018-06-21] MEDS: CARVEDILOL 6.25 MG TABLET PO SCH (09:08)
[2018-06-21] MEDS: ASPIRIN 81 MG TABLET, ENT COATED PO SCH (09:08)
[2018-06-21] MEDS: SPIRONOLACTONE 25 MG TABLET PO SCH (09:08)
[2018-06-21] MEDS: METOLAZONE 2.5 MG TABLET PO SCH (09:09)
[2018-06-21] MEDS: TOLVAPTAN 30 MG TABLET PO SCH (09:09)
[2018-06-21] MEDS: MAGNESIUM OXIDE 400 MG TABLET PO SCH (09:09)
[2018-06-21] MEDS ORDERED: NORMAL SALINE 250 ML with FUROSEMIDE 250 MG IV PRN ×2 (10:59)
[2018-06-21] MEDS ORDERED: MAGNESIUM SULFATE INJ 8 MEQ/2 ML IV ONE (11:16)
[2018-06-21] MEDS: POLYETHYLENE GLYCOL 3350 POWDER 17 GM/1 PACKET PO SCH (11:47)
[2018-06-21 11:54] LABS: BLOOD UREA NITROGEN 17 mg/dL (7-20); CALCIUM 8.4 mg/dL (8.4-10.2); CHLORIDE 66 mmol/L (98-107); GLUCOSE 137 mg/dL (75-110); POTASSIUM 4.3 mmol/L (3.6-5.0)
[2018-06-21 12:00] LABS: ANION GAP 10 (5-19)
[2018-06-21] MEDS ORDERED: MAGNESIUM SULFATE/D5W 1 GM/100 ML RTUPB IV ONE (12:00)
[2018-06-21 12:10] LABS: CARBON DIOXIDE 40 mmol/L (22-30); SODIUM 115.5 mmol/L (137-145)
[2018-06-21] MEDS: SACUBITRIL/VALSARTAN 97 MG/103 MG TABLET PO SCH ×2 (12:33→17:19)
[2018-06-21] MEDS ORDERED: NOREPINEPHRINE BITARTRATE INJ/PF 4 MG/4 ML SDV IV ONE (14:14)
[2018-06-21] MEDS: DEXTROSE 5%-WATER 250 ML with NOREPINEPHRINE BITARTRATE 4 MG IV PRN ×4 (14:33→20:01)
[2018-06-21] MEDS: TAMSULOSIN HCL 0.4 MG CAP.SR.24H PO SCH (17:19)
[2018-06-21] MEDS: PHARMACY COMMUNICATION ORDER MC SCH (17:19)
[2018-06-21] MEDS ORDERED: METOLAZONE 2.5 MG TABLET PO SCH (18:00)
[2018-06-21 18:45] LABS: BLOOD UREA NITROGEN 20 mg/dL (7-20); CALCIUM 8.1 mg/dL (8.4-10.2); CHLORIDE 65 mmol/L (98-107); GLUCOSE 255 mg/dL (75-110); POTASSIUM 4.3 mmol/L (3.6-5.0)
[2018-06-21 18:51] LABS: ANION GAP 9 (5-19); CARBON DIOXIDE 38 mmol/L (22-30)
[2018-06-21 18:57] LABS: SODIUM 112.2 mmol/L (137-145)
[2018-06-21] MEDS ORDERED: MIDODRINE HCL 5 MG TABLET PO ONE (20:00)
[2018-06-21 20:30] LABS: ANION GAP 9 (5-19); BLOOD UREA NITROGEN 21 mg/dL (7-20); CARBON DIOXIDE 38 mmol/L (22-30); CHLORIDE 65 mmol/L (98-107); GLUCOSE 232 mg/dL (75-110); POTASSIUM 4.3 mmol/L (3.6-5.0)
[2018-06-21 20:34] LABS: SODIUM 111.7 mmol/L (137-145)
[2018-06-21] MEDS ORDERED: INSULIN GLARGINE,HUM.REC.ANLOG 1,000 UNIT/10 ML UNIT SUBCUT ONE (21:38)
[2018-06-21] MEDS: INSULIN LISPRO 100 UNIT/ML 3 ML VIAL SUBCUT PRN (21:44)
[2018-06-21] MEDS: INSULIN GLARGINE,HUM.REC.ANLOG 300 UNIT/3 ML INSULN.PEN SUBCUT SCH (22:36)
--- NOTE | 2018-06-21 22:47 | Progress Note ---
Provider Note Provider Note: cardiology PROGRESS NOTE by Dr. Emmanuelle Martinez on 06/21/2018 SUBJECTIVE: The patient is slightly more drowsy. In spite of his treatment his sodium is not coming up. He does have a good urine output. He is gone back into atrial fibrillation, with the ventricular response being not very fast. There is no bleeding on Eliquis. There is no TIA CVA symptoms. He continues to have orthopnea but no PND. His leg edema is slightly improved. The patient has a sense of impending doom, and keeps stating that his heart is going to stop. There is no TIA CVA symptoms. There is no cough or sputum production. There is no ventricular arrhythmia seen on the monitor. There is no firing of his AICD. Note that the patient now has been made DNR after the patient and the family had discussions with each other. PHYSICAL EXAMINATION: The patient is mildly obese. He is drowsy, but in no acute distress. He is well-groomed. Selected Entries 06/21/18 20:06 Heart Rate ( 102 Monitors) Respiratory 24 H Rate Blood Pressure 95/65 L Blood Pressure 75 Mean O2 Sat by Pulse 90 L Oximetry Premature 9 Ventricular Counted Beats Ectopic Status Run ST Lead II -0.3 HEAD: Is atraumatic normocephalic. EYES: Pupils are equal round regular reactive to light accommodation. Extraocular movements are normal. There is no clinical pallor. There is no scleral icterus. EARS: Tympanic membranes are intact. External auditory canals are clear. NOSE: There is no deviated nasal septum. There is no inflammation of the nasal mucous membranes. MOUTH: Mucous membranes of mouth are moist. Tongue is moist. There is no ulcers in the mouth. There is no bleeding from the gums. THROAT: There is no redness of the oropharynx, and no exudates seen in the throat. SKIN: There is no petechia or ecchymosis. There is no skin rashes or skin lesions. NECK: Is supple. There is JVD present. Carotids are equal there is no bruit. There is no lymphadenopathy, and there is no goiter. LUNGS: There is bibasilar rales of CHF. There is no chest wall tenderness. There is no rhonchi or wheezing. HEART: S1-S2 is heard. S1 is of variable intensity there is no S3 gallop. There is no S4 gallop there is systolic murmur left sternal border and the apex there is no rub. ABDOMEN: Is soft. There is abdominal wall edema present there is no hepatosplenic megaly. Bowel sounds are well heard there is no rebound guarding or rigidity. EXTREMITIES: There is mild pedal edema of the upper extremities/anasarca present. There is 2- edema bilateral lower extremities. There is no DVT or cellulitis. There is no calf tenderness. There is no sinus or clubbing. Capillary refill is normal. BOOT TRIMMER: The patient's conscious less drowsy than yesterday. He moves all 4 extremities and there is no focal deficits. PSYCHIATRIC: When awakened the patient is more alert. He is not agitated or anxious. 06/21/18 06/21/18 06/21/18 11:20 16:30 20:07 Sodium 115.5 L* 112.2 L* 111.7 L* Potassium 4.3 4.3 4.3 Chloride 66 L 65 L 65 L Carbon Dioxide 40 H* 38 H 38 H Anion Gap 10 9 9 BUN 17 20 21 H Creatinine 0.72 1.03 0.98 Est GFR (Non-Af Amer) > 60 > 60 > 60 Glucose 137 H 255 H 232 H Calcium 8.4 8.1 L 8.0 L The patient's 24-hour intake is 492 mL. Output is 4200 cGy amount. IMPRESSION/RECOMMENDATION: 1. Acute hypoxic respiratory failure due to heart failure. Hypoxia no improved on nasal oxygen and current treatment. 2. 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 Continue patient on dobutamine. Since now the central line has been placed. The patient on milrinone. Continue patient's Lasix drip. His blood pressure is much improved, and hence we will restart the patient's Entresto and his previous dose. Continue the patient on spironolactone and Coreg. 2. Paroxysmal atrial fibrillation: Patient back in atrial fibrillation, but ventricular response is not fast.. Continue the patient on Eliquis. 4. Dilated cardiomyopathy with severely reduced LV ejection fraction: Continue inotropic support and anti-cardiomyopathy medication as is being done. 5. Moderate pulmonary hypertension: Most likely right ventricular failure secondary to left ventricular failure. 6. Hyponatremia: Patient started on Samsca. If the sodium does not improve with the aggressive anti-CHF treatment, this will board a very grave prognosis. 7. Hypertension: Continue current medication. 8. Diabetes mellitus: Continue antidiabetic treatment. 9. History of AICD placement. No firing of his AICD Medications reviewed. Medications adjusted. Management plan discussed with the patient's attending physician, and other caregiving providers on the case. Discussed with the patient and patient's family. Medical decision making is of high complexity. 40 minutes spent on this patient with more than 50% of time spent in direct patient care. Patient's prognosis very poor. Ability to get the patient's sodium up in the light of the patient's heart failure was very grave prognosis. This has been discussed with the family. Addendum l.: Ater in the night Dr. Sukhjinder Monroy and I discussed the patient. Dr. Monroy feels that if the patient blood pressure is a little higher Samsca might work to raise the patient's sodium levels. As per mutual agreement on the plan of management, the patient's Coreg and Entresto will be held. Will hold the patient's amrinone. Increase the patient's levo fed to get the blood pressure drop. Continue patient on Lasix drip, which has been increased by Dr. Monroy.
[2018-06-21 23:29] LABS: ANION GAP 8 (5-19); BLOOD UREA NITROGEN 22 mg/dL (7-20); CALCIUM 8.1 mg/dL (8.4-10.2); CARBON DIOXIDE 38 mmol/L (22-30); CHLORIDE 66 mmol/L (98-107); GLUCOSE 210 mg/dL (75-110); POTASSIUM 4.3 mmol/L (3.6-5.0)
[2018-06-21 23:34] LABS: SODIUM 112.2 mmol/L (137-145)
[2018-06-22] MEDS: DEXTROSE 5%-WATER 250 ML with NOREPINEPHRINE BITARTRATE 4 MG IV PRN ×8 (01:35→23:09)
[2018-06-22 03:12] LABS: BLOOD UREA NITROGEN 24 mg/dL (7-20); CALCIUM 8.2 mg/dL (8.4-10.2); CHLORIDE 66 mmol/L (98-107); GLUCOSE 182 mg/dL (75-110); POTASSIUM 4.2 mmol/L (3.6-5.0)
[2018-06-22 03:18] LABS: ANION GAP 9 (5-19)
[2018-06-22 03:31] LABS: CARBON DIOXIDE 40 mmol/L (22-30)
[2018-06-22 03:33] LABS: SODIUM 114.5 mmol/L (137-145)
[2018-06-22] MEDS ORDERED: FUROSEMIDE INJ/PF 100 MG/10 ML SDV ONE (05:55)
[2018-06-22] MEDS ORDERED: LEVOTHYROXINE SODIUM 0.025 MG TABLET PO SCH (06:00)
[2018-06-22] MEDS: LANSOPRAZOLE 30 MG TAB.RAP.DR PO SCH (06:20)
[2018-06-22] MEDS: NORMAL SALINE 250 ML with FUROSEMIDE 250 MG IV PRN ×4 (06:20→16:59)
[2018-06-22 06:43] LABS: HEMATOCRIT 27.9 % (37.9-51.0); HEMOGLOBIN 9.9 g/dL (13.5-17.0); MEAN CORPUSCULAR HEMOGLOBIN 27.4 pg (27.0-33.4); MEAN CORPUSCULAR HGB CONC 35.6 g/dL (32.0-36.0); MEAN CORPUSCULAR VOLUME 77 fl (80-97); PLATELET COUNT 146 10^3/uL (150-450); RED BLOOD COUNT 3.62 10^6/uL (4.35-5.55); RED CELL DISTRIBUTION WIDTH 13.6 % (11.5-14.0); WHITE BLOOD COUNT 10.7 10^3/uL (4.0-10.5)
[2018-06-22 07:13] LABS: ABSOLUTE LYMPHOCYTES# (MANUAL) 1.4 10^3/uL (0.5-4.7); ABSOLUTE MONOCYTES # (MANUAL) 1.1 10^3/uL (0.1-1.4); ABSOLUTE NEUTROPHILS# (MANUAL) 8.2 10^3/uL (1.7-8.2); BASOPHILS % (MANUAL) 0 % (0-2); EOSINOPHILS % (MANUAL) 0 % (0-6); LYMPHOCYTES % (MANUAL) 12 % (13-45); MONOCYTES % (MANUAL) 10 % (3-13); SEGMENTED NEUTROPHILS % (MAN) 77 % (42-78); TOTAL CELLS COUNTED 100
[2018-06-22 07:15] LABS: BLOOD UREA NITROGEN 24 mg/dL (7-20); CALCIUM 8.2 mg/dL (8.4-10.2); CHLORIDE 66 mmol/L (98-107); GLUCOSE 166 mg/dL (75-110); POTASSIUM 4.1 mmol/L (3.6-5.0)
[2018-06-22 07:16] LABS: PLATELET COMMENT ADEQUATE; POIKILOCYTOSIS SLIGHT; SCHISTOCYTES SLIGHT
[2018-06-22 07:25] LABS: ANION GAP 5 (5-19)
[2018-06-22 07:27] LABS: CARBON DIOXIDE 43 mmol/L (22-30)
[2018-06-22 07:28] LABS: SODIUM 114.4 mmol/L (137-145)
[2018-06-22] MEDS ORDERED: TOLVAPTAN 15 MG TABLET PO SCH (08:00)
[2018-06-22] MEDS ORDERED: METOLAZONE 2.5 MG TABLET PO SCH (08:00)
--- NOTE | 2018-06-22 09:13 | PDOC PROGRESS REPORT ---
Subjective Progress Note for:: 06/22/18 Subjective:: The patient is more somnolent. Family is at the bedside this morning. Stated that he slept most of yesterday. Unfortunately his serum sodium is still less than 120 and not responding to aggressive regimen. Vasopressors increased. Still with PVCs despite discontinuation of dobutamine. Reason For Visit: HEART FAILURE Physical Exam Vital Signs: Temp Pulse Resp BP Pulse Ox 98.4 F 84 15 97/56 L 98 06/22/18 08:00 06/22/18 08:00 06/22/18 08:22 06/22/18 08:22 06/22/18 08:22 Pulse Oximeter Continuous Start: 06/17/18 12: 14 Freq: RTQ4 Status: Complete Protocol: Document 06/20/18 11:20 LDA (Rec: 06/20/18 11:20 [id number]) Pulse Oximetry Assessment Equipment Usage Equipment Discontinued Continuous SpO2 Machine # 4 Intake & Output 06/21/18 06/22/18 06/23/18 06:59 06:59 06:59 Intake Total 492 1343 Output Total 4275 2545 400 Balance -3783 -1202 -400 Weight 110.2 kg 109.8 kg General appearance: PRESENT: no acute distress, other - Somnolent Head exam: PRESENT: normocephalic Eye exam: PRESENT: other - Did not assess Ear exam: PRESENT: normal external ear exam Mouth exam: PRESENT: other - Did not assess Teeth exam: PRESENT: other - Did not assess Throat exam: PRESENT: other - Did not assess Neck exam: ABSENT: carotid bruit, lymphadenopathy Respiratory exam: PRESENT: decreased breath sounds, rales - Fine rales at bases. Limited auscultation due to significantly decreased inspiratory phase, symmetrical, unlabored. ABSENT: stridor, wheezes Cardiovascular exam: PRESENT: RRR - With occasional PVCs, +S1, +S2, other - Heart sounds decreased Vascular exam: PRESENT: pallor GI/Abdominal exam: PRESENT: diminished bowel sounds, soft. ABSENT: tenderness Rectal exam: PRESENT: deferred Extremities exam: PRESENT: +1 edema - Hands, +2 edema - Legs Neurological exam: PRESENT: other - Somnolent/lethargic. ABSENT: awake Psychiatric exam: PRESENT: flat affect. ABSENT: agitated Focused psych exam: ABSENT: restlessness Results Laboratory Results: 06/22/18 05:30 06/22/18 05:30 06/21/18 06/21/18 06/21/18 11:20 16:30 20:07 WBC RBC Hgb Hct MCV MCH MCHC RDW Plt Count Seg Neutrophils % Lymphocytes % Monocytes % Eosinophils % Basophils % Absolute Neutrophils Absolute Lymphocytes Absolute Monocytes Absolute Eosinophils Absolute Basophils Sodium 115.5 L* 112.2 L* 111.7 L* Potassium 4.3 4.3 4.3 Chloride 66 L 65 L 65 L Carbon Dioxide 40 H* 38 H 38 H Anion Gap 10 9 9 BUN 17 20 21 H Creatinine 0.72 1.03 0.98 Est GFR ( Amer) > 60 > 60 > 60 Est GFR (Non-Af Amer) > 60 > 60 > 60 Glucose 137 H 255 H 232 H Calcium 8.4 8.1 L 8.0 L 06/21/18 06/22/18 06/22/18 23:02 02:54 05:30 WBC RBC Hgb Hct MCV MCH MCHC RDW Plt Count Seg Neutrophils % Lymphocytes % Monocytes % Eosinophils % Basophils % Absolute Neutrophils Absolute Lymphocytes Absolute Monocytes Absolute Eosinophils Absolute Basophils Sodium 112.2 L* 114.5 L* 114.4 L* Potassium 4.3 4.2 4.1 Chloride 66 L 66 L 66 L Carbon Dioxide 38 H 40 H* 43 H* Anion Gap 8 9 5 BUN 22 H 24 H 24 H Creatinine 1.02 1.03 0.94 Est GFR ( Amer) > 60 > 60 > 60 Est GFR (Non-Af Amer) > 60 > 60 > 60 Glucose 210 H 182 H 166 H Calcium 8.1 L 8.2 L 8.2 L 06/22/18 05:30 WBC 10.7 H RBC 3.62 L Hgb 9.9 L Hct 27.9 L MCV 77 L MCH 27.4 MCHC 35.6 RDW 13.6 Plt Count 146 L Seg Neutrophils % Not Reportable Lymphocytes % Not Reportable Monocytes % Not Reportable Eosinophils % Not Reportable Basophils % Not Reportable Absolute Neutrophils Not Reportable Absolute Lymphocytes Not Reportable Absolute Monocytes Not Reportable Absolute Eosinophils Not Reportable Absolute Basophils Not Reportable Sodium Potassium Chloride Carbon Dioxide Anion Gap BUN Creatinine Est GFR ( Amer) Est GFR (Non-Af Amer) Glucose Calcium 06/17/18 06/17/18 06/17/18 09:25 09:25 15:48 Creatine Kinase 37 L CK-MB (CK-2) 1.65 1.56 Troponin I < 0.012 < 0.012 NT-Pro-B Natriuret Pep 4300 H 06/17/18 06/17/18 06/17/18 15:48 22:30 22:30 Creatine Kinase 36 L 42 L CK-MB (CK-2) 1.81 Troponin I NT-Pro-B Natriuret Pep 06/19/18 06/20/18 05:26 13:00 Creatine Kinase CK-MB (CK-2) Troponin I NT-Pro-B Natriuret Pep 4520 H 5060 H Impressions: Chest X-Ray 06/20/18 12:02 IMPRESSION: NO PNEUMOTHORAX FOLLOWING CENTRAL LINE PLACEMENT. OTHERWISE NO CHANGE. Assessment & Plan - Diagnosis (1) Acute respiratory failure with hypoxia Is this a current diagnosis for this admission?: Yes Plan: Still requiring supplemental oxygen. Ongoing diuresis. (2) Acute on chronic systolic and diastolic heart failure, NYHA class 4 Is this a current diagnosis for this admission?: Yes Plan: Furosemide drip increased again. 3+ liter negative fluid balance yesterday. Remains on milrinone and levo fed. Still with PVCs despite stopping dobutamine. Continue aggressive diuresis at this time. He remains on Coreg and is back on Entresto. Due to the aggressive diuresis he is developing contraction alk alosis. (3) Dilated cardiomyopathy Is this a current diagnosis for this admission?: Yes Plan: Not responding to aggressive therapy. Remains anticoagulated. (4) Hyponatremia Is this a current diagnosis for this admission?: Yes Plan: Despite very aggressive regimen the serum sodium is only 114 this morning. 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 There was no specific intervention. Continue to monitor. (9) Obesity (BMI 30.0-34.9) Is this a current diagnosis for this admission?: Yes Plan: No acute intervention at this time. Serum iron level was normal. We will continue to monitor hemoglobin and transfuse if clinically indicated. (10) Anemia Qualifiers: Anemia type: unspecified type Qualified Code(s): D64.9 - Anemia, unspecified Is this a current diagnosis for this admission?: Yes Plan: Hemoglobin stable. Continue to monitor. - Time Time Spent with patient: 35 or more minutes Medications reviewed and adjusted accordingly: Yes - Plan Summary Plan Summary: Had a discussion with the patient's and 1 of his daughters this morning. They are aware that the patient is not responding to aggressive measures. They will discuss with family members the decision to change to comfort care only. It is likely that they will decide today. I did describe the process and ensure them that we would make sure that the patient remains comfortable at all costs.
[2018-06-22] MEDS: POLYETHYLENE GLYCOL 3350 POWDER 17 GM/1 PACKET PO SCH (10:33)
[2018-06-22] MEDS: APIXABAN 5 MG TABLET PO SCH (10:34)
[2018-06-22] MEDS: PREGABALIN 75 MG CAPSULE PO SCH (10:34)
[2018-06-22] MEDS: MAGNESIUM OXIDE 400 MG TABLET PO SCH (10:35)
[2018-06-22] MEDS: MIDODRINE HCL 5 MG TABLET PO SCH ×2 (10:35→16:00)
[2018-06-22] MEDS: ASPIRIN 81 MG TABLET, ENT COATED PO SCH (10:35)
[2018-06-22] MEDS: DOCUSATE SODIUM 100 MG CAPSULE PO SCH (10:35)
[2018-06-22 11:47] LABS: BLOOD UREA NITROGEN 24 mg/dL (7-20); CALCIUM 8.6 mg/dL (8.4-10.2); CHLORIDE 65 mmol/L (98-107); GLUCOSE 167 mg/dL (75-110); POTASSIUM 4.3 mmol/L (3.6-5.0)
[2018-06-22 12:00] LABS: ANION GAP 8 (5-19)
[2018-06-22 12:02] LABS: CARBON DIOXIDE 42 mmol/L (22-30); SODIUM 114.6 mmol/L (137-145)
[2018-06-22] MEDS ORDERED: SODIUM CHLORIDE 3% 500 ML IV ONE (14:00)
[2018-06-22 16:56] LABS: BLOOD UREA NITROGEN 25 mg/dL (7-20); CALCIUM 8.4 mg/dL (8.4-10.2); CHLORIDE 65 mmol/L (98-107); GLUCOSE 205 mg/dL (75-110)
[2018-06-22 17:08] LABS: ANION GAP 7 (5-19)
[2018-06-22 17:10] LABS: CARBON DIOXIDE 44 mmol/L (22-30); SODIUM 115.6 mmol/L (137-145)
[2018-06-22] MEDS ORDERED: ACETAMINOPHEN 325 MG TABLET PO PRN (19:42)
[2018-06-22] MEDS ORDERED: MILRINONE LACTATE/D5W 20 MG/100 ML RTUINJ IV PRN (19:43)
--- NOTE | 2018-06-22 19:48 | Progress Note ---
Provider Note Provider Note: The patient's family had time to discuss the situation and decided to move forward with comfort care measures. I placed all the appropriate orders. Visitors were spending time with the patient before we turned off all the medications. Because the patient became conversant for the first time today they decided to hold on moving to comfort care for the rest of today. Because of this I resumed the milrinone and levo fed. The furosemide infusion has not been very effective with regard to sodium. The patient is not on IV fluids and will not reaccumulate large amount of fluid in the next 12-14 hours. The comfort care order will be temporarily suspended but should take effect tomorrow morning.
[2018-06-22] MEDS: MORPHINE SULFATE 10 MG/ML INJ IV PRN (23:34)
[2018-06-23] MEDS: MORPHINE SULFATE 10 MG/ML INJ IV PRN ×5 (04:22→17:56)
[2018-06-23] MEDS: DEXTROSE 5%-WATER 250 ML with NOREPINEPHRINE BITARTRATE 4 MG IV PRN ×2 (04:27)
[2018-06-23] MEDS ORDERED: TOLVAPTAN 30 MG TABLET PO SCH (08:00)
[2018-06-23 10:18] VITALS: BP 89/63
--- NOTE | 2018-06-23 11:32 | PDOC PROGRESS REPORT ---
Subjective Progress Note for:: 06/23/18 Subjective:: The patient was lethargic yesterday. Discussion with the family resulted in the plan to make the patient comfort only. With visitors the patient became interactive. Plans for comfort measures were placed on hold. The patient was restarted on milrinone and levo fed. This morning the patient is lethargic again. He can barely complete a sentence without closing his eyes. The family is in agreement to proceed with comfort measures this morning. Reason For Visit: HEART FAILURE Physical Exam Vital Signs: Temp Pulse Resp BP Pulse Ox 99.4 F 97 14 89/63 L 95 06/23/18 04:00 06/22/18 20:00 06/23/18 10:00 06/23/18 09:52 06/23/18 10:00 Pulse Oximeter Continuous Start: 06/17/18 12:14 Freq: RTQ4 Status: Complete Protocol: Document 06/20/18 11:20 LDA (Rec: 06/20/18 11:20 LDA [id number]) Pulse Oximetry Assessment Equipment Usage Equipment Discontinued Continuous SpO2 Machine # 4 Intake & Output 06/22/18 06/23/18 06/24/18 06:59 06:59 06:59 Intake Total 1343 1779 250 Output Total 2545 5900 430 Balance -1202 -4121 -180 Weight 109.8 kg 103.4 kg General appearance: PRESENT: no acute distress, other - Somnolent Head exam: PRESENT: normocephalic Respiratory exam: PRESENT: decreased breath sounds - At bases, rales, other - Limited inspiratory effort Cardiovascular exam: PRESENT: irregular rhythm GI/Abdominal exam: PRESENT: diminished bowel sounds, soft. ABSENT: tenderness Extremities exam: PRESENT: pedal edema Neurological exam: ABSENT: alert - Very somnolent. Could barely keep his eyes open to finish a sentence. Psychiatric exam: PRESENT: flat affect. ABSENT: agitated, anxious Focused psych exam: ABSENT: restlessness Results Laboratory Results: 06/22/18 05:30 06/22/18 20:09 06/22/18 06/22/18 06/22/18 11:00 16:20 20:09 Sodium 114.6 L* 115.6 L* 116.4 L* Potassium 4.3 4.0 Chloride 65 L 65 L Carbon Dioxide 42 H* 44 H* Anion Gap 8 7 BUN 24 H 25 H Creatinine 0.86 0.89 Est GFR ( Amer) > 60 > 60 Est GFR (Non-Af Amer) > 60 > 60 Glucose 167 H 205 H Calcium 8.6 8.4 06/17/18 06/17/18 06/17/18 09:25 09:25 15:48 Creatine Kinase 37 L CK-MB (CK-2) 1.65 1.56 Troponin I < 0.012 < 0.012 NT-Pro-B Natriuret Pep 4300 H 06/17/18 06/17/18 06/17/18 15:48 22:30 22:30 Creatine Kinase 36 L 42 L CK-MB (CK-2) 1.81 Troponin I NT-Pro-B Natriuret Pep 06/19/18 06/20/18 05:26 13:00 Creatine Kinase CK-MB (CK-2) Troponin I NT-Pro-B Natriuret Pep 4520 H 5060 H Impressions: Chest X-Ray 06/20/18 12:02 IMPRESSION: NO PNEUMOTHORAX FOLLOWING CENTRAL LINE PLACEMENT. OTHERWISE NO CHANGE. Assessment & Plan - Diagnosis (1) Acute respiratory failure with hypoxia Is this a current diagnosis for this admission?: Yes Plan: Instituting comfort measures only today (2) Acute on chronic systolic and diastolic heart failure, NYHA class 4 Is this a current diagnosis for this admission?: Yes Plan: Did not respond to aggressive therapy. Comfort measures only at this time. (3) Dilated cardiomyopathy Is this a current diagnosis for this admission?: Yes Plan: With comfort measures instituted we will turn off his defibrillator. (4) Hyponatremia Is this a current diagnosis for this admission?: Yes (5) Hypothyroidism Qualifiers: Hypothyroidism type: unspecified Qualified Code(s): E03.9 - Hypothyroidism, unspecified Is this a current diagnosis for this admission?: Yes Plan: Medication discontinued. Comfort measures only (6) Diabetes mellitus type 2, insulin dependent Is this a current diagnosis for this admission?: Yes Plan: Medications discontinued. 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 Comfort measures only (8) Thrombocytopenia Is this a current diagnosis for this admission?: Yes Plan: No longer monitoring platelet count. Comfort measures only (9) Obesity (BMI 30.0-34.9) Is this a current diagnosis for this admission?: Yes Plan: Comfort measures only (10) Anemia Qualifiers: Anemia type: unspecified type Qualified Code(s): D64.9 - Anemia, unspecified Is this a current diagnosis for this admission?: Yes Plan: Comfort measures only - Time Time Spent with patient: 25-34 minutes Medications reviewed and adjusted accordingly: Yes Anticipated discharge: Other - Patient is comfort measures only at this time. Life expectancy is most likely 6-12 hours.
[2018-06-23] MEDS: LORAZEPAM INJ 2 MG/1 ML VIAL IV PRN ×2 (16:43→17:55)
--- NOTE | 2018-06-24 07:54 | Death Summary ---
Summary Date : 06/23/18 Time of :: 20:49 Resuscitation Status: Comfort Measures Only - Final Diagnosis (1) Acute respiratory failure with hypoxia Is this a current diagnosis for this admission?: Yes (2) Acute on chronic systolic and diastolic heart failure, NYHA class 4 Is this a current diagnosis for this admission?: Yes (3) Dilated cardiomyopathy Is this a current diagnosis for this admission?: Yes (4) Hyponatremia Is this a current diagnosis for this admission?: Yes (5) Hypothyroidism Is this a current diagnosis for this admission?: Yes (6) Diabetes mellitus type 2, insulin dependent Is this a current diagnosis for this admission?: Yes (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 Cutler had a very complex hospital course. He was admitted on June 17. He had hypoxic respiratory failure from acute on chronic congestive heart failure secondary to his severe cardiomyopathy. He had an implanted defibrillator 2 years ago for an ejection fraction less than 25%. His sodium on admission was 123. Because of hypotension he transferred to the intensive care unit. He was placed on a furosemide drip because intermittent doses were ineffective. He was on an oral fluid restriction and Dr. Monroy started him on tolvaptan. Because of his severe systolic failure and hypotension he was placed on levo fed, dobutamine and milrinone. The dobutamine dose was adjusted due to arrhythmias. Eventually dobutamine was discontinued secondary to PVCs and milrinone and furosemide infusion were continued. Despite ongoing aggressive therapy and comanagement with nephrology and cardiology the patient did not improve. His sodium never reached above 120 despite a trial of hypertonic saline. With no i mprovement and in fact slow decline the patient acknowledged that his prognosis was poor. After several discussions with the patient and family it was decided that all aggressive measures were proving futile. On June 22 the decision was made to proceed with comfort measures only. Medication changes were instituted. Because the patient was awake and conversant that afternoon the decision to resume essential medications was made by the family with a plan to change back to comfort measures only the next morning. The levo fed and milrinone infusions were resumed along with medications for pain, anxiety and shortness of breath. When I met with the family on the morning of June 23 all are in agreement to proceed with the comfort measures only and the continuous infusions of milrinone and Levophed were discontinued. Later in the afternoon the nurse reported that the patient was beginning to become symptomatic with some agitation and difficulty breathing. Aggressive measures with anxiolytics and analgesics were available and subsequently administered. The patient at 8:49 PM with family at the bedside. The nurse reported that the patient appeared comfortable. Cause of Acute on chronic congestive heart failure Severe cardiomyopathy with depressed ejection fraction Chronic atrial fibrillation hyponatremia
== END 2018-06-23 23:50 | disposition expired | DRG 291 ==
LOC: ER 08:41 → EH 11:30 → 3N 14:58 → ICU 06-20 11:02
PROVIDERS: ADMIT Internal Medicine; ATTEND Internal Medicine
PROC: 02HV33Z Insertion of Infusion Device into Superior Vena Cava, Percutaneous Approach (ICD-10-PCS; principal; 2018-06-20)
DX: I11.0 Hypertensive heart disease with heart failure (principal); J96.01 Acute respiratory failure with hypoxia; E87.1 Hypo-osmolality and hyponatremia; I50.43 Acute on chronic combined systolic (congestive) and diastolic (congestive) heart failure; Z95.810 Presence of automatic (implantable) cardiac defibrillator; Z51.5 Encounter for palliative care; J44.9 Chronic obstructive pulmonary disease, unspecified; E11.9 Type 2 diabetes mellitus without complications; Z87.891 Personal history of nicotine dependence; N40.0 Benign prostatic hyperplasia without lower urinary tract symptoms; Z90.49 Acquired absence of other specified parts of digestive tract; I95.9 Hypotension, unspecified; I48.2 Chronic atrial fibrillation; E11.40 Type 2 diabetes mellitus with diabetic neuropathy, unspecified; E78.5 Hyperlipidemia, unspecified; H35.30 Unspecified macular degeneration; E66.9 Obesity, unspecified; K21.9 Gastro-esophageal reflux disease without esophagitis; I42.0 Dilated cardiomyopathy; I08.1 Rheumatic disorders of both mitral and tricuspid valves; D69.6 Thrombocytopenia, unspecified; D64.9 Anemia, unspecified; I27.20 Pulmonary hypertension, unspecified; M19.90 Unspecified osteoarthritis, unspecified site; Z83.3 Family history of diabetes mellitus; Z82.49 Family history of ischemic heart disease and other diseases of the circulatory system; Z79.82 Long term (current) use of aspirin; Z79.4 Long term (current) use of insulin; Z79.899 Other long term (current) drug therapy; Z79.01 Long term (current) use of anticoagulants
CPT/HCPCS: 36415; 71045; 71046; 80048; 80053; 80061; 82040; 82550; 82553; 82607; 82728; 82746; 82803; 82962; 83540; 83550; 83735; 83880; 83930; 83935; 84295; 84443; 84484; 85025; 85027; 85045; 93005; 93010; 93306; 94762; 99285; A9270-GY; C1751; J1250; J1815; J1940; J2060; J2260; J2270; J3475; J3490; J7050; J7060